=== PATIENT | female | born 1985 | race Caucasian/White ===

== ENCOUNTER 2017-07-24 10:33 | Emergency (ER) | payer MEDICAID ==
[~2017-07-24] VITALS: Ht 172.7 cm; Wt 55.0 kg
[2017-07-24 10:36] VITALS: BP 104/61; PULSE 66; RESP 16; TEMP 98.3; O2SAT 98
[2017-07-24] MEDS ORDERED: PREM0.45 PO (11:03)
[2017-07-24] MEDS ORDERED: OLAN15TA PO (11:03)
[2017-07-24] MEDS ORDERED: PROG100C PO (11:03)
[2017-07-24] MEDS ORDERED: ESTR.9 PO (11:03)
[2017-07-24] MEDS ORDERED: SODIUM CHLOR 0.9% 1000 ML INJ 1,000 ML IV ONE (11:03)
[2017-07-24] MEDS ORDERED: OXCA300T PO (11:03)
[2017-07-24] MEDS ORDERED: OXCA150T PO (11:03)
[2017-07-24] MEDS ORDERED: CLON1TAB PO (11:03)
[2017-07-24] MEDS ORDERED: ROZE8TAB19 PO (11:03)
[2017-07-24] MEDS ORDERED: GABA800T PO (11:03)
[2017-07-24] MEDS ORDERED: MORPHINE SULFATE 8 MG/ML INJ IV PUSH ONE (11:15)
[2017-07-24] MEDS ORDERED: SODIUM CHLORIDE 0.9% FLUSH 10 ML FLUSH IVF PRN (11:15)
[2017-07-24] MEDS ORDERED: KETOROLAC TROMETHAMINE 30 MG/ML (IVP) VIAL IVP ONE (11:15)
[2017-07-24] MEDS ORDERED: PROCHLORPERAZINE INJ 10 MG/2 ML VIAL IVP ONE (11:15)
[2017-07-24] MEDS ORDERED: diphenhydrAMINE HCL 50 MG/ML VIAL IVP ONE (11:15)
--- NOTE | 2017-07-24 11:19 | PD ---
HPI Chief Complaint: General Weakness Time Seen by Provider: 10:58 Travel History International Travel<30 days: No Contact w/Intl Traveler<30days: No Traveled to known affect area: No History of Present Illness HPI The patient is a 32-year-old female who presents to the emergency department with complaints of headache and generalized malaise. The patient states her headache started 2 days ago, is located posterior aspect of her head , came on gradually, is associated with photophobia, nausea, vomiting, and generalized weakness. She does have a history of similar headaches in the past secondary to migraines. She denies any diplopia or blurry vision. She denies any chest pain, shortness of breath, or abdominal pain. She denies any focal deficits. She does complain of generalized malaise. She does have a history of hysterectomy and has been out of her hormones for several weeks. She denies any associated fever. She does have intermittent chills. She denies any associated dysuria. PFSH Past Medical History Bipolar Disorder: Yes Anxiety: Yes ?: Not Ovarian Cysts: Yes Past Surgical History Cholecystectomy: Yes Hysterectomy: Yes Social History Alcohol Use: No Tobacco Use: Yes Substance Use: No Allergies-Medications (Allergen,Severity, Reaction): Coded Allergies: acetaminophen (Verified Allergy, Unknown, Rash, 07/24/17) citalopram (Verified Allergy, Unknown, 07/24/17) hydrocodone (Verified Allergy, Unknown, Rash, 07/24/17) metoclopramide (Verified Allergy, Unknown, 07/24/17) Reported Meds & Prescriptions Reported Meds & Active Scripts Active Reported Premarin (Estrogens, Conjugated) 0.45 Mg Tab 0.45 Mg PO DAILY Premarin (Estrogens Conjugated) 0.9 Mg Tab 0.9 Mg PO DAILY Progesterone Micronized 100 Mg Cap 100 Mg PO DAILY Olanzapine 15 Mg Tab 15 Mg PO DAILY Oxcarbazepine 150 Mg Tab 150 Mg PO BID Oxcarbazepine 300 Mg Tab 300 Mg PO HS Clonazepam 1 Mg Tab 1 Mg PO BID Rozerem (Ramelteon) 8 Mg Tab 8 Mg PO HS Gabapentin 800 Mg Tab 800 Mg PO TID Review of Systems Except as stated in HPI: all other systems reviewed are Neg General / Constitutional: Positive: Chills, No: Fever Eyes: Positive: Photophobia, No: Blurred Vision HENT: Positive: Headaches, Neck Pain Cardiovascular: No: Chest Pain or Discomfort Respiratory: No: Shortness of Breath Gastrointestinal: Positive: Nausea, Vomiting, No: Abdominal Pain Genitourinary: No: Dysuria Musculoskeletal: Positive: Weakness Neurologic: No: Paresthesia, Sensory Disturbance Physical Exam Narrative GENERAL: Awake, alert, pleasant 32 year-old female who appears her stated age and is in no acute respiratory distress. SKIN: Focused skin assessment warm/dry. HEAD: Atraumatic. Normocephalic. EYES: Pupils equal and round. Pupils are 3 monos bilateral and reactive. EOMs are intact. ENT: No nasal bleeding or discharge. Mucous membranes pink and moist. The patient has a tongue ring which states "fuck you". NECK: Trachea midline. No JVD. No meningeal signs. CARDIOVASCULAR: Regular rate and rhythm. No murmur appreciated. RESPIRATORY: No accessory muscle use. Clear to auscultation. Breath sounds equal bilaterally. GASTROINTESTINAL: Abdomen soft, non-tender, nondistended. No rebound tenderness. MUSCULOSKELETAL: No obvious deformities. No clubbing. No cyanosis. No edema. NEUROLOGICAL: Awake and alert. No obvious cranial nerve deficits. Motor grossly within normal limits. Normal speech. Nonfocal. PSYCHIATRIC: Appropriate mood and affect; insight and judgment normal. Data Data Last Documented VS Vital Signs Date Time Temp Pulse Resp B/P (MAP) Pulse Ox O2 Delivery O2 Flow Rate FiO2 07/24/17 11:13 Room Air 07/24/17 10:36 98.3 66 16 98 Orders Orders Complete Blood Count With Diff (07/24/17 11:03) Comprehensive Metabolic Panel (07/24/17 11:03) Ecg Monitoring (07/24/17 11:03) Iv Access Insert/Monitor (07/24/17 11:03) Oximetry (07/24/17 11:03) Sodium Chloride 0.9% Flush (Ns Flush) (07/24/17 11:15) Ketorolac Inj (Toradol Inj) (07/24/17 11:15) Prochlorperazine Inj (Compazine Inj) (07/24/17 11:15) Diphenhydramine Inj (Benadryl Inj) (07/24/17 11:15) Morphine Inj (Morphine Inj) (07/24/17 11:15) Sodium Chlor 0.9% 1000 Ml Inj (Ns 1000 M (2/12/18 11:03) Urinalysis - C+S If Indicated (07/24/17 11:03) Hydroxyzine Pamoate (Vistaril) (07/24/17 12:15) Labs Laboratory Tests Test 07/24/17 11:10 07/24/17 11:13 White Blood Count 5.3 TH/MM3 Red Blood Count 3.98 MIL/MM3 Hemoglobin 13.0 GM/DL Hematocrit 37.5 % Mean Corpuscular Volume 94.3 FL Mean Corpuscular Hemoglobin 32.8 PG Mean Corpuscular Hemoglobin Concent 34.7 % Red Cell Distribution Width 13.3 % Platelet Count 209 TH/MM3 Mean Platelet Volume 7.8 FL Neutrophils (%) (Auto) 55.4 % Lymphocytes (%) (Auto) 34.3 % Monocytes (%) (Auto) 7.8 % Eosinophils (%) (Auto) 2.1 % Basophils (%) (Auto) 0.4 % Neutrophils # (Auto) 2.9 TH/MM3 Lymphocytes # (Auto) 1.8 TH/MM3 Monocytes # (Auto) 0.4 TH/MM3 Eosinophils # (Auto) 0.1 TH/MM3 Basophils # (Auto) 0.0 TH/MM3 CBC Comment DIFF FINAL Differential Comment Blood Urea Nitrogen 11 MG/DL Creatinine 0.57 MG/DL Random Glucose 84 MG/DL Total Protein 7.4 GM/DL Albumin 3.8 GM/DL Calcium Level 8.9 MG/DL Alkaline Phosphatase 72 U/L Aspartate Amino Transf (AST/SGOT) 15 U/L Alanine Aminotransferase (ALT/SGPT) 14 U/L Total Bilirubin 0.2 MG/DL Sodium Level 140 MEQ/L Potassium Level 4.0 MEQ/L Chloride Level 109 MEQ/L Carbon Dioxide Level 25.5 MEQ/L Anion Gap 6 MEQ/L Estimat Glomerular Filtration Rate 122 ML/MIN Urine Color YELLOW Urine Turbidity CLEAR Urine pH 6.0 Urine Specific [place] 1.014 Urine Protein NEG mg/dL Urine Glucose (UA) NEG mg/dL Urine Ketones NEG mg/dL Urine Occult Blood NEG Urine Nitrite NEG Urine Bilirubin NEG Urine Urobilinogen LESS THAN 2.0 MG/DL Urine Leukocyte Esterase NEG Urine RBC 2 /hpf Urine WBC 1 /hpf Urine Squamous Epithelial Cells 2 /hpf Urine Mucus FEW /lpf Microscopic Urinalysis Comment CULT NOT INDICATED MDM Medical Decision Making Medical Screen Exam Complete: Yes Emergency Medical Condition: Yes Medical Record Reviewed: Yes Interpretation(s) Laboratory Tests Test 07/24/17 11:10 07/24/17 11:13 White Blood Count 5.3 TH/MM3 Red Blood Count 3.98 MIL/MM3 Hemoglobin 13.0 GM/DL Hematocrit 37.5 % Mean Corpuscular Volume 94.3 FL Mean Corpuscular Hemoglobin 32.8 PG Mean Corpuscular Hemoglobin Concent 34.7 % Red Cell Distribution Width 13.3 % Platelet Count 209 TH/MM3 Mean Platelet Volume 7.8 FL Neutrophils (%) (Auto) 55.4 % Lymphocytes (%) (Auto) 34.3 % Monocytes (%) (Auto) 7.8 % Eosinophils (%) (Auto) 2.1 % Basophils (%) (Auto) 0.4 % Neutrophils # (Auto) 2.9 TH/MM3 Lymphocytes # (Auto) 1.8 TH/MM3 Monocytes # (Auto) 0.4 TH/MM3 Eosinophils # (Auto) 0.1 TH/MM3 Basophils # (Auto) 0.0 TH/MM3 CBC Comment DIFF FINAL Differential Comment Blood Urea Nitrogen 11 MG/DL Creatinine 0.57 MG/DL Random Glucose 84 MG/DL Total Protein 7.4 GM/DL Albumin 3.8 GM/DL Calcium Level 8.9 MG/DL Alkaline Phosphatase 72 U/L Aspartate Amino Transf (AST/SGOT) 15 U/L Alanine Aminotransferase (ALT/SGPT) 14 U/L Total Bilirubin 0.2 MG/DL Sodium Level 140 MEQ/L Potassium Level 4.0 MEQ/L Chloride Level 109 MEQ/L Carbon Dioxide Level 25.5 MEQ/L Anion Gap 6 MEQ/L Estimat Glomerular Filtration Rate 122 ML/MIN Urine Color YELLOW Urine Turbidity CLEAR Urine pH 6.0 Urine Specific [place] 1.014 Urine Protein NEG mg/dL Urine Glucose (UA) NEG mg/dL Urine Ketones NEG mg/dL Urine Occult Blood NEG Urine Nitrite NEG Urine Bilirubin NEG Urine Urobilinogen LESS THAN 2.0 MG/DL Urine Leukocyte Esterase NEG Urine RBC 2 /hpf Urine WBC 1 /hpf Urine Squamous Epithelial Cells 2 /hpf Urine Mucus FEW /lpf Microscopic Urinalysis Comment CULT NOT INDICATED Differential Diagnosis Differential diagnosis includes migraine, cephalgia, tension headache, subarachnoid hemorrhage, meningitis, UTI, pyelonephritis, electrolyte abnormality. Narrative Course IV was established, labs are drawn and sent, and the patient was placed on cardiac telemetry monitoring and continuous pulse oximetry monitoring. The patient was administered morphine, Toradol, Compazine, Benadryl, and IV fluids. UA was sent to lab. Condition: Stable Dez Lynn MD Jul 24, 2017 11:19
[2017-07-24 11:29] LABS: AUTOMATED NEUTROPHIL # 2.9 TH/MM3 (1.8-7.7); BASOPHIL % 0.4 % (0.0-2.0); EOSINOPHIL # 0.1 TH/MM3 (0-0.4); EOSINOPHIL % 2.1 % (0.0-4.0); HEMATOCRIT 37.5 % (35.0-46.0); LYMPH % 34.3 % (9.0-44.0); LYMPHOCYTE # 1.8 TH/MM3 (1.0-4.8); MEAN CELL VOLUME 94.3 FL (80.0-100.0); MEAN CORPUSCULAR HEMOGLOBIN 32.8 PG (27.0-34.0); MEAN CORPUSCULAR HGB CONC 34.7 % (32.0-36.0); MEAN PLATELET VOLUME 7.8 FL (7.0-11.0); MONO % 7.8 % (0.0-8.0); MONOCYTE # 0.4 TH/MM3 (0-0.9); NEUT % 55.4 % (16.0-70.0); PLATELET COUNT 209 TH/MM3 (150-450); RED BLOOD COUNT 3.98 MIL/MM3 (4.00-5.30); RED CELL DISTRIBUTION WIDTH 13.3 % (11.6-17.2); WHITE BLOOD COUNT 5.3 TH/MM3 (4.0-11.0)
[2017-07-24 11:38] LABS: BILIRUBIN, URINE NEG (NEG); BLOOD, URINE NEG (NEG); GLUCOSE,URINE NEG (NEG); KETONE, URINE NEG (NEG); MUCUS URINE FEW /lpf (OCC); NITRITE,URINE NEG (NEG); SQUAMOUS EPITHELIAL CELL URINE 2 /hpf (0-5); URINE COLOR YELLOW (YELLW/STRAW); URINE LEUKOCYTE ESTERASE NEG (NEG)
[2017-07-24 11:47] LABS: ALBUMIN 3.8 GM/DL (3.4-5.0); ALT (GPT) 14 U/L (10-53); AST (GOT) 15 U/L (15-37); BICARBONATE 25.5 MEQ/L (21.0-32.0); BLOOD UREA NITROGEN 11 MG/DL (7-18); CALCIUM 8.9 MG/DL (8.5-10.1); CHLORIDE 109 MEQ/L (98-107); CREATININE 0.57 MG/DL (0.50-1.00); GLOMERULAR FILTRATION RATE 122 ML/MIN (>89); GLUCOSE,RANDOM 84 MG/DL (74-106); SODIUM (NA) 140 MEQ/L (136-145)
[2017-07-24 11:50] LABS: ALKALINE PHOSPHATASE 72 U/L (45-117); TOTAL BILIRUBIN ADULT 0.2 MG/DL (0.2-1.0); TOTAL PROTEIN 7.4 GM/DL (6.4-8.2)
[2017-07-24] MEDS ORDERED: hydrOXYzine PAMOATE 25 MG CAP PO ONE (12:15)
== END 2017-07-24 12:54 | disposition home or self-care (01) ==
LOC: NEPD 10:33
DX: R51 Headache (principal); R11.2 Nausea with vomiting, unspecified; R53.1 Weakness; F31.9 Bipolar disorder, unspecified; F41.9 Anxiety disorder, unspecified; Z72.0 Tobacco use; Z88.8 Allergy status to other drugs, medicaments and biological substances; Z79.899 Other long term (current) drug therapy
CPT/HCPCS: 80053; 81001; 85025; 96374; 96375; 99284; J0780; J1200; J1885; J2270; J7030; Q0177

== ENCOUNTER 2017-08-01 11:49 | Emergency (ER) | payer SELFPAY ==
[~2017-08-01] VITALS: Ht 172.7 cm; Wt 53.5 kg
[~2017-08-01 11:49] MED LIST: CLON1TAB PO; ESTR.9 PO; GABA800T PO; OLAN15TA PO; OXCA150T PO; OXCA300T PO; PREM0.45 PO; PROG100C PO; ROZE8TAB19 PO
[2017-08-01 11:51] VITALS: BP 104/63; PULSE 77; RESP 16; TEMP 98.9; O2SAT 98
[2017-08-01] MEDS ORDERED: PERM5CRE TOPICAL (13:01)
--- NOTE | 2017-08-01 13:04 | PD ---
HPI Chief Complaint: Skin Problem Time Seen by Provider: 13:00 Travel History International Travel<30 days: No Contact w/Intl Traveler<30days: No Traveled to known affect area: No History of Present Illness HPI Examined in the presence of a female nurse. 32-year-old female presents for evaluation of a rash. Symptoms started 2-3 days ago. The rash is pruritic, primarily found on the torso. She has occasional pruritic lesions on her lower extremities as well. She has tried using Benadryl but the rash persists which prompted evaluation. She reports that she moved here from [place] in June, currently residing in an apartment with her family. No sick contacts with rash. Denies any new medications, creams, lotions detergents, cough, congestion, sore throat. Denies any new clothing or food products. She has no other complaints at this time. PFSH Past Medical History Bipolar Disorder: Yes Anxiety: Yes ?: Not Ovarian Cysts: Yes Past Surgical History Cholecystectomy: Yes Hysterectomy: Yes Social History Alcohol Use: No Tobacco Use: Yes Substance Use: No Allergies-Medications (Allergen,Severity, Reaction): Coded Allergies: acetaminophen (Verified Allergy, Unknown, Rash, 07/24/17) citalopram (Verified Allergy, Unknown, 07/24/17) hydrocodone (Verified Allergy, Unknown, Rash, 07/24/17) metoclopramide (Verified Allergy, Unknown, 07/24/17) Reported Meds & Prescriptions Reported Meds & Active Scripts Active Reported Premarin (Estrogens, Conjugated) 0.45 Mg Tab 0.45 Mg PO DAILY Premarin (Estrogens Conjugated) 0.9 Mg Tab 0.9 Mg PO DAILY Progesterone Micronized 100 Mg Cap 100 Mg PO DAILY Olanzapine 15 Mg Tab 15 Mg PO DAILY Oxcarbazepine 150 Mg Tab 150 Mg PO BID Oxcarbazepine 300 Mg Tab 300 Mg PO HS Clonazepam 1 Mg Tab 1 Mg PO BID Rozerem (Ramelteon) 8 Mg Tab 8 Mg PO HS Gabapentin 800 Mg Tab 800 Mg PO TID Review of Systems Except as stated in HPI: all other systems reviewed are Neg Physical Exam Narrative GENERAL: Well developed well-nourished female in no acute distress SKIN: Warm and dry. Several scattered excoriated papular lesions noted primarily on the torso. She has a few small papular lesions on the lower extremities as well. No hives, no vesicles, no pustules, no petechiae, no purpura HEAD: Atraumatic. Normocephalic. EYES: Pupils equal and round. No scleral icterus. No injection or drainage. ENT: No nasal bleeding or discharge. Mucous membranes pink and moist. NECK: Trachea midline. No JVD. CARDIOVASCULAR: Regular rate and rhythm. No murmur appreciated. RESPIRATORY: No accessory muscle use. Clear to auscultation. Breath sounds equal bilaterally. GASTROINTESTINAL: Abdomen soft, non-tender, nondistended. Hepatic and splenic margins not palpable. Data Data Last Documented VS Vital Signs Date Time Temp Pulse Resp B/P (MAP) Pulse Ox O2 Delivery O2 Flow Rate FiO2 08/01/17 11:51 98.9 77 16 104/63 (77) 98 Room Air MDM Medical Decision Making Medical Screen Exam Complete: Yes Emergency Medical Condition: Yes Medical Record Reviewed: Yes Differential Diagnosis Bedbugs, scabies, viral exanthem, contact dermatitis, pityriasis rosea, urticaria Narrative Course On examination the patient has excoriated papular lesions of unknown etiology. The patient will be given permethrin cream, recommended continued use of over- the-counter antihistamines and follow up with primary care physician if symptoms persist. Diagnosis Primary Impression: Pruritic rash Additional Instructions: [id number] Benadryl, calamine lotion, oatmeal baths. Avoid scratching. Medication as prescribed. Follow-up with primary care physician. Return for any emergent medical conditions. Med/Other Pt SpecificInfo: Prescription(s) given Scripts Permethrin Topical 5% (Permethrin Topical 5%) 5% Cream 1 APPLIC TOPICAL ONCE for Scabies, #1 TUBE 1 Refill Prov: Humberto Palacios MD 08/01/17 Disposition: 01 DISCHARGE HOME Condition: Stable Robert Dolan Aug 01, 2017 13:04
== END 2017-08-01 13:19 | disposition home or self-care (01) ==
LOC: NEPK 11:49
DX: R21 Rash and other nonspecific skin eruption (principal); Z72.0 Tobacco use
CPT/HCPCS: 99283

== ENCOUNTER 2017-08-06 14:16 | Emergency (ER) | payer MEDICAID ==
[~2017-08-06] VITALS: Ht 172.7 cm; Wt 55.0 kg
[~2017-08-06 14:16] MED LIST changes: +PERM5CRE TOPICAL
[2017-08-06 14:18] VITALS: BP 129/80; PULSE 57; RESP 13; TEMP 98.2; O2SAT 99
[2017-08-06] MEDS ORDERED: OXCA150T PO (15:22)
[2017-08-06] MEDS ORDERED: OLAN15TA PO (15:22)
[2017-08-06] MEDS ORDERED: OXCA300T PO (15:22)
--- NOTE | 2017-08-06 15:22 | PD ---
HPI Chief Complaint: Headache Time Seen by Provider: 14:55 Travel History International Travel<30 days: No Contact w/Intl Traveler<30days: No Traveled to known affect area: No History of Present Illness HPI 32-year-old female presents to the emergency department requesting medication refill on her bipolar medications and with complaint of headache 2 days. Has history of migraines and says her headache is consistent with past migraines. She thinks that her migraine has onset because she has been out of her medications for 1 week. Reports left eye twitching and "trembles." Headache is right posterior. Gradual onset. Denies fever, vomiting. Denies change in vision. Denies confusion, disorientation, change in mentation, slurred speech. Denies illicit drug use. Rates it 01/19. Describes as aching. Start taking tramadol, Tylenol, Motrin with no relief of headache. No primary care provider. History of asthma and seizures. Allergies to Celexa and Reglan. Has no other medical complaints. No other modifying factors or associated signs and symptoms. PFSH Past Medical History Bipolar Disorder: Yes Anxiety: Yes ?: Not Ovarian Cysts: Yes Past Surgical History Cholecystectomy: Yes Hysterectomy: Yes Social History Alcohol Use: No Tobacco Use: Yes Substance Use: No Allergies-Medications (Allergen,Severity, Reaction): Coded Allergies: acetaminophen (Verified Allergy, Unknown, Rash, 08/06/17) citalopram (Verified Allergy, Unknown, 08/06/17) hydrocodone (Verified Allergy, Unknown, Rash, 08/06/17) metoclopramide (Verified Allergy, Unknown, 08/06/17) Reported Meds & Prescriptions Reported Meds & Active Scripts Active Olanzapine 15 Mg Tab 15 Mg PO DAILY Oxcarbazepine 150 Mg Tab 150 Mg PO BID Oxcarbazepine 300 Mg Tab 300 Mg PO HS Permethrin Topical 5% (Permethrin) 5% Cream 1 Applic TOPICAL ONCE Reported Premarin (Estrogens, Conjugated) 0.45 Mg Tab 0.45 Mg PO DAILY Premarin (Estrogens Conjugated) 0.9 Mg Tab 0.9 Mg PO DAILY Progesterone Micronized 100 Mg Cap 100 Mg PO DAILY Clonazepam 1 Mg Tab 1 Mg PO BID Rozerem (Ramelteon) 8 Mg Tab 8 Mg PO HS Gabapentin 800 Mg Tab 800 Mg PO TID Review of Systems Except as stated in HPI: all other systems reviewed are Neg Physical Exam Narrative GENERAL: Well-nourished, well-developed female patient, in no acute distress; tremulous SKIN: Warm and dry. HEAD: Atraumatic. Normocephalic. No facial droop noted. Tongue midline. Finger to nose test normal. Shoulder shrug equal. EYES: Pupils equal and round at 4 mm with brisk reaction. No scleral icterus. No injection or drainage. PERRLA. EOMI. ENT: Mucosa pink and moist. Airway patent. NECK: Trachea midline. No lymphadenopathy. CARDIOVASCULAR: Regular rate. RESPIRATORY: No accessory muscle use. GASTROINTESTINAL: Flat. MUSCULOSKELETAL: No obvious deformities. No clubbing. No cyanosis. No edema. NEUROLOGICAL: Awake and alert. Oriented 3. No obvious cranial nerve deficits. Motor grossly within normal limits. Normal speech. No ataxia. No mid -line drift. No upper or lower extremity drift. Moves all extremities. 5/5 strength to all extremities. PSYCHIATRIC: Appropriate mood and affect; insight and judgment normal. Data Data Last Documented VS Vital Signs Date Time Temp Pulse Resp B/P (MAP) Pulse Ox O2 Delivery O2 Flow Rate FiO2 08/06/17 14:18 98.2 57 13 129/80 (96) 99 Orders Orders Clonazepam (Klonopin) (08/06/17 15:30) Ketorolac Inj (Toradol Inj) (08/06/17 15:30) Diphenhydramine (Benadryl) (08/06/17 15:30) Prochlorperazine Inj (Compazine Inj) (08/06/17 15:30) Ed Discharge Order (08/06/17 16:23) [facility] Medical Decision Making Medical Screen Exam Complete: Yes Emergency Medical Condition: Yes Medical Record Reviewed: Yes Differential Diagnosis Medication refill, migraine headache, benzodiazepine withdrawal Narrative Course 32-year-old female with complaint of headache and requesting medication refill. She is tremulous. She typically takes clonazepam for her anxiety and bipolar disorder. She has been out for 1 week. Neuro exam is unremarkable. Her headache is consistent with past migraine headaches. Clonazepam, Benadryl, Compazine, Toradol ordered. 1637: Patient reports improvement in headache. Medication refills for some of her medications provided. Patient given information for follow-up at [facility]/ [facility]. Instructed patient to follow up with primary care provider. Patient verbalizes understanding and agreement with treatment plan. Patient is medically cleared and stable for discharge. Discussed reasons to return to the emergency department. Patient agrees with treatment plan. The patients vital signs are stable and the patient is stable for outpatient follow-up and treatment. Patient discharged home, stable and in no acute distress. Diagnosis Primary Impression: Headache Qualified Codes: R51 - Headache Additional Impressions: Tremor Medication refill Referrals: [facility] (Out patient) Primary Care Physician [facility] Patient Instructions: Acute Headache (ED), General Instructions, Migraine Headache (ED), Tremors (ED) Additional Instructions: Follow-up at [facility] or [facility]; the location and contact information is in your discharge instructions Follow-up with primary care provider Follow-up at [facility] they are a primary care office Return to the emergency department immediately with worsening of symptoms Med/Other Pt SpecificInfo: Prescription(s) given Scripts Olanzapine (Olanzapine) 15 Mg Tab 15 MG PO DAILY, #30 TAB 0 Refills Prov: Jade LobatoP 08/06/17 Oxcarbazepine (Oxcarbazepine) 150 Mg Tab 150 MG PO BID for Seizure Control, #30 TAB 0 Refills Prov: Jade LobatoP 08/06/17 Oxcarbazepine (Oxcarbazepine) 300 Mg Tab 300 MG PO HS for Seizure Control, #30 TAB 0 Refills Prov: Jade LobatoP 08/06/17 Disposition: 01 DISCHARGE HOME Condition: Stable Jade LobatoP Aug 06, 2017 15:22
[2017-08-06] MEDS ORDERED: KETOROLAC TROMETHAMINE 60 MG/2 ML (IM) VIAL IM ONE (15:30)
[2017-08-06] MEDS ORDERED: PROCHLORPERAZINE INJ 10 MG/2 ML VIAL IM ONE (15:30)
[2017-08-06] MEDS ORDERED: diphenhydrAMINE HCL 50 MG CAP PO ONE (15:30)
[2017-08-06] MEDS ORDERED: clonazePAM 1 MG TAB PO ONE (15:30)
== END 2017-08-06 16:57 | disposition home or self-care (01) ==
LOC: NEPD 14:16
DX: R51 Headache (principal); R25.1 Tremor, unspecified; J45.909 Unspecified asthma, uncomplicated; F31.9 Bipolar disorder, unspecified; F41.9 Anxiety disorder, unspecified; N83.209 Unspecified ovarian cyst, unspecified side; Z76.0 Encounter for issue of repeat prescription; Z72.0 Tobacco use
CPT/HCPCS: 96372; 99281; J0780; J1885; Q0163

== ENCOUNTER 2017-08-22 11:38 | Emergency (ER) | payer MEDICAID ==
[~2017-08-22] VITALS: Ht 172.7 cm; Wt 53.6 kg
[2017-08-22 12:02] VITALS: BP 109/73; PULSE 81; RESP 18; TEMP 98.1; O2SAT 100
[2017-08-22 12:49] LABS: BASOPHIL % 0.4 % (0.0-2.0); EOSINOPHIL # 0.1 TH/MM3 (0-0.4); EOSINOPHIL % 1.1 % (0.0-4.0); HEMATOCRIT 40.4 % (35.0-46.0); HEMOGLOBIN 14.5 GM/DL (11.6-15.3); LYMPH % 16.7 % (9.0-44.0); LYMPHOCYTE # 1.3 TH/MM3 (1.0-4.8); MEAN CELL VOLUME 93.2 FL (80.0-100.0); MEAN CORPUSCULAR HEMOGLOBIN 33.6 PG (27.0-34.0); MEAN PLATELET VOLUME 8.4 FL (7.0-11.0); MONO % 6.6 % (0.0-8.0); MONOCYTE # 0.5 TH/MM3 (0-0.9); NEUT % 75.2 % (16.0-70.0); PLATELET COUNT 180 TH/MM3 (150-450); RED BLOOD COUNT 4.33 MIL/MM3 (4.00-5.30); RED CELL DISTRIBUTION WIDTH 12.4 % (11.6-17.2); WHITE BLOOD COUNT 7.9 TH/MM3 (4.0-11.0)
[2017-08-22 13:07] LABS: ALBUMIN 4.8 GM/DL (3.4-5.0); ALT (GPT) 17 U/L (10-53); AST (GOT) 13 U/L (15-37); BICARBONATE 22.8 MEQ/L (21.0-32.0); BLOOD UREA NITROGEN 13 MG/DL (7-18); CALCIUM 9.4 MG/DL (8.5-10.1); CHLORIDE 103 MEQ/L (98-107); CREATININE 0.61 MG/DL (0.50-1.00); GLOMERULAR FILTRATION RATE 113 ML/MIN (>89); GLUCOSE,RANDOM 72 MG/DL (74-106); SODIUM (NA) 138 MEQ/L (136-145)
[2017-08-22 13:17] LABS: ALKALINE PHOSPHATASE 93 U/L (45-117); TOTAL BILIRUBIN ADULT 0.3 MG/DL (0.2-1.0); TOTAL PROTEIN 8.5 GM/DL (6.4-8.2)
[2017-08-22 13:31] LABS: OVALOCYTES 1+ (NORMAL)
--- NOTE | 2017-08-22 15:00 | PD ---
HPI Chief Complaint: Anxiety Time Seen by Provider: 14:39 Travel History International Travel<30 days: No Contact w/Intl Traveler<30days: No Traveled to known affect area: No History of Present Illness HPI 32-year-old female presents to the emergency room with a panic attack. Patient states panic attack started this morning when she woke up because she became concerned about not having her medications. States it started off with hot flashes that she gets since having a hysterectomy. She usually takes medication to ease her post hysterectomy symptoms but has been out for a long time. This caused her to develop a panic with associated nausea, vomiting, tremors, and slight headache. She has been out of all of her medications since moving down from [place] a few weeks ago. Patient states she had her medications filled in [place] with insurance but now she has [employer] and cannot afford them. She denies significant chest pain, abdominal pain, shortness of breath, dizziness. Denies suicidal or homicidal ideation. No hallucinations or delusions. She denies illicit drug use. Denies drinking alcohol. She denies any other chronic medical conditions. PFSH Past Medical History Bipolar Disorder: Yes Anxiety: Yes Depression: Yes Diminished Hearing: No Seizures: Yes ?: Not : 3 Para: 3 Ovarian Cysts: Yes Past Surgical History Appendectomy: Yes Cholecystectomy: Yes Hysterectomy: Yes (ENDOMETRIOSIS) Social History Alcohol Use: No Tobacco Use: Yes Substance Use: No Allergies-Medications (Allergen,Severity, Reaction): Coded Allergies: acetaminophen (Verified Allergy, Unknown, Rash, 08/22/17) citalopram (Verified Allergy, Unknown, 08/22/17) hydrocodone (Verified Allergy, Unknown, Rash, 08/22/17) metoclopramide (Verified Allergy, Unknown, 08/22/17) Reported Meds & Prescriptions Reported Meds & Active Scripts Active Olanzapine 15 Mg Tab 15 Mg PO DAILY Oxcarbazepine 150 Mg Tab 150 Mg PO BID Oxcarbazepine 300 Mg Tab 300 Mg PO HS Permethrin Topical 5% (Permethrin) 5% Cream 1 Applic TOPICAL ONCE Reported Premarin (Estrogens, Conjugated) 0.45 Mg Tab 0.45 Mg PO DAILY Premarin (Estrogens Conjugated) 0.9 Mg Tab 0.9 Mg PO DAILY Progesterone Micronized 100 Mg Cap 100 Mg PO DAILY Clonazepam 1 Mg Tab 1 Mg PO BID Rozerem (Ramelteon) 8 Mg Tab 8 Mg PO HS Gabapentin 800 Mg Tab 800 Mg PO TID Review of Systems Except as stated in HPI: all other systems reviewed are Neg Physical Exam Narrative GENERAL: Well-nourished, well-developed female in no acute distress. Afebrile. Ambulatory. SKIN: Focused skin assessment warm/dry. HEAD: Normocephalic. EYES: No scleral icterus. No injection or drainage. NECK: Supple, trachea midline. No JVD or lymphadenopathy. CARDIOVASCULAR: Regular rate and rhythm without murmurs, gallops, or rubs. RESPIRATORY: Breath sounds equal bilaterally. No accessory muscle use. GASTROINTESTINAL: Abdomen soft, non-tender, nondistended. PSYCHIATRIC: No delusional thought processes. No hallucinations. Crying on exam. Data Data Last Documented VS Vital Signs Date Time Temp Pulse Resp B/P (MAP) Pulse Ox O2 Delivery O2 Flow Rate FiO2 08/22/17 12:02 98.1 81 18 109/73 (85) 100 Orders Orders Complete Blood Count With Diff (08/22/17 12:05) Comprehensive Metabolic Panel (08/22/17 12:05) Lipase (08/22/17 12:05) Thyroid Stimulating Hormone (08/22/17 12:05) Hydroxyzine Pamoate (Vistaril) (08/22/17 14:45) Ondansetron Odt (Zofran Odt) (08/22/17 15:30) Labs Laboratory Tests Test 08/22/17 12:30 White Blood Count 7.9 TH/MM3 Red Blood Count 4.33 MIL/MM3 Hemoglobin 14.5 GM/DL Hematocrit 40.4 % Mean Corpuscular Volume 93.2 FL Mean Corpuscular Hemoglobin 33.6 PG Mean Corpuscular Hemoglobin Concent 36.0 % Red Cell Distribution Width 12.4 % Platelet Count 180 TH/MM3 Mean Platelet Volume 8.4 FL Neutrophils (%) (Auto) 75.2 % Lymphocytes (%) (Auto) 16.7 % Monocytes (%) (Auto) 6.6 % Eosinophils (%) (Auto) 1.1 % Basophils (%) (Auto) 0.4 % Neutrophils # (Auto) 6.0 TH/MM3 Lymphocytes # (Auto) 1.3 TH/MM3 Monocytes # (Auto) 0.5 TH/MM3 Eosinophils # (Auto) 0.1 TH/MM3 Basophils # (Auto) 0.0 TH/MM3 CBC Comment AUTO DIFF Differential Comment AUTO DIFF CONFIRMED Platelet Estimate NORMAL Platelet Morphology Comment NORMAL Ovalocytes 1+ Blood Urea Nitrogen 13 MG/DL Creatinine 0.61 MG/DL Random Glucose 72 MG/DL Total Protein 8.5 GM/DL Albumin 4.8 GM/DL Calcium Level 9.4 MG/DL Alkaline Phosphatase 93 U/L Aspartate Amino Transf (AST/SGOT) 13 U/L Alanine Aminotransferase (ALT/SGPT) 17 U/L Total Bilirubin 0.3 MG/DL Sodium Level 138 MEQ/L Potassium Level 3.7 MEQ/L Chloride Level 103 MEQ/L Carbon Dioxide Level 22.8 MEQ/L Anion Gap 12 MEQ/L Estimat Glomerular Filtration Rate 113 ML/MIN Lipase 72 U/L Thyroid Stimulating Hormone 3rd Gen 0.705 uIU/ML MDM Medical Decision Making Medical Screen Exam Complete: Yes Emergency Medical Condition: Yes Medical Record Reviewed: Yes Differential Diagnosis Malingering, anxiety, panic disorder, medication noncompliance Narrative Course 52-year-old female with history of anxiety presents to the emergency room for evaluation of panic attack. Patient states symptoms started this morning as a hot flash. States she became anxious about not having her medications after her hysterectomy that help prevent hot flashes that caused her to develop a panic attack. She had associated shaking, crying, nausea, vomiting. She denies chest pain, palpitations, shortness of breath, or dizziness. No suicidal ideations. Patient just moved here from [place] and has not been able to find a place to refill her medications. States she got refills for her medications last time she was here but never had them filled because she cannot afford them. She was referred to [facility] but never went. Physical exam is unremarkable. Patient's abdomen is soft, nontender. She is crying on exam. Lung sounds clear and equal bilaterally. CBC and CMP are unremarkable. Lipase and TSH are negative. Patient was given Vistaril in the emergency room. Discharged with prescription for the same. Told to follow-up with [facility] return for worsening symptoms. She understands and agrees to plan. Diagnosis Primary Impression: Panic attack Referrals: [facility] (Out patient) [facility] [address] Additional Instructions: Vistaril as directed, as needed for anxiety. Follow-up with [facility] for medication refills for your psychiatric medications. Follow-up with [facility] [address] for routine primary care. Return as needed for emergent or urgent medical conditions. Disposition: 01 DISCHARGE HOME Condition: Stable Patricia Sánchez Aug 22, 2017 15:00
[2017-08-22] MEDS ORDERED: ONDANSETRON ODT 4 MG TAB PO ONE (15:30)
[2017-08-22] MEDS ORDERED: VIST50CA PO (15:54)
== END 2017-08-22 16:43 | disposition home or self-care (01) ==
LOC: NEPD 11:38
DX: F41.0 Panic disorder [episodic paroxysmal anxiety] (principal); F31.9 Bipolar disorder, unspecified; Z72.0 Tobacco use
CPT/HCPCS: 80053; 83690; 84443; 85025; 99283

== ENCOUNTER 2017-09-07 07:13 | Emergency (ER) | payer MEDICAID ==
[~2017-09-07] VITALS: Ht 172.7 cm; Wt 54.0 kg
[~2017-09-07 07:13] MED LIST changes: +VIST50CA PO
[2017-09-07 07:21] VITALS: BP 106/69; PULSE 74; RESP 17; TEMP 97.4; O2SAT 100
--- NOTE | 2017-09-07 08:04 | PD ---
HPI Chief Complaint: Medication Refill Request Time Seen by Provider: 07:40 Travel History International Travel<30 days: No Contact w/Intl Traveler<30days: No Traveled to known affect area: No History of Present Illness HPI 32-year-old female presents the emergency department with symptoms of menopause, including sweats, shakiness, and inability to sleep, secondary to running out of her estrogen medications 1 week ago. Patient had a total hysterectomy in 2014 secondary to endometriosis. 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 She is in process of doing that. Her current medications have refills but she cannot have them refilled here in this state since moving. Her current medications that she should be taking his Premarin 0.45 at bedtime in addition to Premarin 0.9 at bedtime, for a total of 1.35 mg. Patient is also to take progesterone 100 mg at bedtime. She has no other complaints or requests. She is allergic to acetaminophen, citalopram, hydrocodone, and metoclopramide. PFSH Past Medical History Bipolar Disorder: Yes Anxiety: Yes Depression: Yes Diminished Hearing: No Seizures: Yes ?: Not : 3 Para: 3 Ovarian Cysts: Yes Past Surgical History Appendectomy: Yes Cholecystectomy: Yes Hysterectomy: Yes Social History Alcohol Use: No Tobacco Use: Yes Substance Use: No Allergies-Medications (Allergen,Severity, Reaction): Coded Allergies: acetaminophen (Verified Allergy, Unknown, Rash, 09/07/17) citalopram (Verified Allergy, Unknown, 09/07/17) hydrocodone (Verified Allergy, Unknown, Rash, 09/07/17) metoclopramide (Verified Allergy, Unknown, 09/07/17) Reported Meds & Prescriptions Reported Meds & Active Scripts Active Vistaril (Hydroxyzine Pamoate) 50 Mg Cap 50 Mg PO TID Olanzapine 15 Mg Tab 15 Mg PO DAILY Oxcarbazepine 150 Mg Tab 150 Mg PO BID Oxcarbazepine 300 Mg Tab 300 Mg PO HS Permethrin Topical 5% (Permethrin) 5% Cream 1 Applic TOPICAL ONCE Reported Premarin (Estrogens, Conjugated) 0.45 Mg Tab 0.45 Mg PO DAILY Premarin (Estrogens Conjugated) 0.9 Mg Tab 0.9 Mg PO DAILY Progesterone Micronized 100 Mg Cap 100 Mg PO DAILY Clonazepam 1 Mg Tab 1 Mg PO BID Rozerem (Ramelteon) 8 Mg Tab 8 Mg PO HS Gabapentin 800 Mg Tab 800 Mg PO TID Review of Systems Except as stated in HPI: all other systems reviewed are Neg General / Constitutional: No: Fever Eyes: No: Visual changes HENT: No: Headaches Cardiovascular: Positive: Palpitations, No: Chest Pain or Discomfort Respiratory: No: Shortness of Breath Gastrointestinal: No: Abdominal Pain Genitourinary: No: Dysuria Musculoskeletal: Positive: Myalgias, No: Pain Skin: No Rash Neurologic: No: Weakness Psychiatric: Positive: Anxiety, No: Depression, Suicidal Ideations, Substance Abuse, Homicidal Ideation Endocrine: No: Polydipsia Hematologic/Lymphatic: No: Easy Bruising Physical Exam Narrative GENERAL: Patient appears anxious SKIN: Warm and dry. Mild diaphoresis noted. No rash. HEAD: Atraumatic. Normocephalic. EYES: Pupils equal and round. No scleral icterus. No injection or drainage. ENT: No nasal bleeding or discharge. Mucous membranes pink and moist. NECK: Trachea midline. No JVD. CARDIOVASCULAR: Regular rate and rhythm. RESPIRATORY: No accessory muscle use. Clear to auscultation. Breath sounds equal bilaterally. GASTROINTESTINAL: Abdomen soft, non-tender, nondistended. Hepatic and splenic margins not palpable. MUSCULOSKELETAL: Extremities without clubbing, cyanosis, or edema. No obvious deformities. NEUROLOGICAL: Awake and alert. No obvious cranial nerve deficits. Motor grossly within normal limits. Five out of 5 muscle strength in the arms and legs. Normal speech. PSYCHIATRIC: Appropriate mood and affect; insight and judgment normal. Data Data Last Documented VS Vital Signs Date Time Temp Pulse Resp B/P (MAP) Pulse Ox O2 Delivery O2 Flow Rate FiO2 09/07/17 07:21 97.4 74 17 106/69 (81) 100 MDM Medical Decision Making Medical Screen Exam Complete: Yes Emergency Medical Condition: Yes Differential Diagnosis History of endometriosis. History total hysterectomy. Need for refill. Narrative Course Patient is given a refill of progesterone 100 mg at bedtime #30. Patient is given a refill of Premarin 0.45 at bedtime. #30. Patient is given refill of Premarin 0.9 mg to be taken with 0.5 mg at bedtime. #30. Patient to follow-up with local [employer]ICATION OPERATOR as discussed. Diagnosis Primary Impression: Encounter for medication refill Referrals: [facility] Patient Instructions: Conjugated Estrogens (By mouth), General Instructions Additional Instructions: Patient is given a refill of progesterone 100 mg at bedtime #30. Patient is given a refill of Premarin 0.45 at bedtime. #30. Patient is given refill of Premarin 0.9 mg to be taken with 0.5 mg at bedtime. #30. Patient to follow-up with local [employer]IFICATION OPERATOR as discussed. Disposition: 01 DISCHARGE HOME Condition: Stable Juan C Colby Sep 07, 2017 08:04
[2017-09-07] MEDS ORDERED: PROG100C PO (08:05)
[2017-09-07] MEDS ORDERED: PREM0.45 PO (08:05)
[2017-09-07] MEDS ORDERED: ESTR.9 PO (08:05)
== END 2017-09-07 08:11 | disposition home or self-care (01) ==
LOC: NEPK 07:13
DX: Z76.0 Encounter for issue of repeat prescription (principal); F31.9 Bipolar disorder, unspecified; F41.9 Anxiety disorder, unspecified; R56.9 Unspecified convulsions; Z72.0 Tobacco use; Z78.0 Asymptomatic menopausal state; Z90.710 Acquired absence of both cervix and uterus; Z79.899 Other long term (current) drug therapy; Z88.6 Allergy status to analgesic agent
CPT/HCPCS: 99281

== ENCOUNTER 2017-09-11 09:52 | Inpatient (IN) | payer MEDICAID ==
[~2017-09-11] VITALS: Ht 165.1 cm; Wt 55.5 kg
[2017-09-11] VITALS (8 sets, daily range): BP systolic 98–110; BP diastolic 60–79; PULSE 61–88; RESP 16–27; TEMP 97.5–98.1; O2SAT 97–100
[2017-09-11] MEDS ORDERED: hydrOXYzine PAMOATE 25 MG CAP PO ONE (10:45)
[2017-09-11] MEDS ORDERED: HYDR-3133 PO (10:47)
--- NOTE | 2017-09-11 10:51 | PD ---
HPI Chief Complaint: Medical Clearance Time Seen by Provider: 10:36 Travel History International Travel<30 days: No Contact w/Intl Traveler<30days: No Traveled to known affect area: No History of Present Illness HPI 32-year-old female previously seen for similar symptoms in the past, just recently seen by myself 4 days ago, with question of withdrawal from her estrogen therapy for previous total hysterectomy. Patient now presents with increased anxiety symptoms and question withdrawal from benzodiazepines. Patient was previously reported to be taking clonazepam regularly through the day. Patient states she has felt this way before. She states she has tried to get into [facility] but has been unable, secondary to insurance issues. Her symptoms include twitching, decreased appetite, nausea. She is allergic to acetaminophen, citalopram, hydrocodone, and metoclopramide. PFSH Past Medical History Bipolar Disorder: Yes Anxiety: Yes Depression: Yes Diminished Hearing: No Respiratory: Yes (ASTHMA) Seizures: Yes ?: Not : 3 Para: 3 Ovarian Cysts: Yes Past Surgical History Appendectomy: Yes Cholecystectomy: Yes Hysterectomy: Yes Social History Alcohol Use: No Tobacco Use: Yes Substance Use: No Allergies-Medications (Allergen,Severity, Reaction): Coded Allergies: acetaminophen (Verified Allergy, Unknown, Rash, 09/11/17) citalopram (Verified Allergy, Unknown, 09/11/17) hydrocodone (Verified Allergy, Unknown, Rash, 09/11/17) metoclopramide (Verified Allergy, Unknown, 09/11/17) Reported Meds & Prescriptions Reported Meds & Active Scripts Active Hydroxyzine HCl 25 Mg Tab 25 Mg PO QID PRN Premarin (Estrogens, Conjugated) 0.45 Mg Tab 0.45 Mg PO DAILY Premarin (Estrogens Conjugated) 0.9 Mg Tab 0.9 Mg PO DAILY Progesterone Micronized 100 Mg Cap 100 Mg PO DAILY Vistaril (Hydroxyzine Pamoate) 50 Mg Cap 50 Mg PO TID Olanzapine 15 Mg Tab 15 Mg PO DAILY Oxcarbazepine 150 Mg Tab 150 Mg PO BID Oxcarbazepine 300 Mg Tab 300 Mg PO HS Permethrin Topical 5% (Permethrin) 5% Cream 1 Applic TOPICAL ONCE Reported Clonazepam 1 Mg Tab 1 Mg PO BID Rozerem (Ramelteon) 8 Mg Tab 8 Mg PO HS Gabapentin 800 Mg Tab 800 Mg PO TID Review of Systems Except as stated in HPI: all other systems reviewed are Neg General / Constitutional: No: Fever Eyes: No: Visual changes HENT: No: Headaches Cardiovascular: No: Chest Pain or Discomfort Respiratory: No: Shortness of Breath Gastrointestinal: No: Abdominal Pain Genitourinary: No: Dysuria Musculoskeletal: No: Pain Skin: No Rash Neurologic: No: Weakness Psychiatric: Positive: Anxiety, No: Depression, Suicidal Ideations, Homicidal Ideation Endocrine: No: Polydipsia Hematologic/Lymphatic: No: Easy Bruising Physical Exam Narrative GENERAL: Patient appears anxious but is able to answer questions appropriately. SKIN: Warm and dry. Normal color. Normal turgor. HEAD: Atraumatic. Normocephalic. EYES: Pupils equal and round. No scleral icterus. No injection or drainage. ENT: No nasal bleeding or discharge. Mucous membranes pink and moist. Pharynx is clear. Airways patent. NECK: Trachea midline. Supple and nontender per CARDIOVASCULAR: Regular rate and rhythm. RESPIRATORY: No accessory muscle use. Clear to auscultation. Breath sounds equal bilaterally. GASTROINTESTINAL: Abdomen soft, non-tender, nondistended. Hepatic and splenic margins not palpable. MUSCULOSKELETAL: Extremities without clubbing, cyanosis, or edema. No obvious deformities. NEUROLOGICAL: Awake and alert. No obvious cranial nerve deficits. Motor grossly within normal limits. Five out of 5 muscle strength in the arms and legs. Normal speech. PSYCHIATRIC: Appropriate mood and affect; insight and judgment normal. Secondary survey after seizure. GENERAL: Patient appears postictal. SKIN: Warm and dry. Normal color. Normal turgor. No obvious signs of trauma. HEAD: Atraumatic. Normocephalic. EYES: Pupils equal and round. No scleral icterus. No injection or drainage. ENT: No nasal bleeding or discharge. Mucous membranes pink and moist. No dental injury. No injury to the tongue or buccal membrane. NECK: Trachea midline. No bony step-off, and range of motion is normal. CARDIOVASCULAR: Regular rate and rhythm. RESPIRATORY: No accessory muscle use. Clear to auscultation. Breath sounds equal bilaterally. GASTROINTESTINAL: Abdomen soft, non-tender, nondistended. Hepatic and splenic margins not palpable. MUSCULOSKELETAL: Extremities without clubbing, cyanosis, or edema. No obvious deformities. NEUROLOGICAL: Patient is postictal. No obvious cranial nerve deficits. Motor grossly within normal limits. Five out of 5 muscle strength in the arms and legs. Normal speech. Data Data Last Documented VS Vital Signs Date Time Temp Pulse Resp B/P (MAP) Pulse Ox O2 Delivery O2 Flow Rate FiO2 09/11/17 12:55 75 22 110/64 (79) 99 09/11/17 10:10 98.1 Orders Orders Hydroxyzine Pamoate (Vistaril) (09/11/17 10:45) Complete Blood Count With Diff (09/11/17 11:31) Basic Metabolic Panel (Bmp) (09/11/17 11:31) Alcohol (Ethanol) (09/11/17 11:31) Drug Screen, Random Urine (09/11/17 11:31) Electrocardiogram (09/11/17 ) Blood Glucose (09/11/17 11:31) Ecg Monitoring (09/11/17 11:31) Iv Access Insert/Monitor (09/11/17 11:31) Oximetry (09/11/17 11:31) Cath For Specimen (09/11/17 11:31) Sodium Chlor 0.9% 1000 Ml Inj (Ns 1000 M (09/11/17 11:31) Sodium Chloride 0.9% Flush (Ns Flush) (09/11/17 11:45) Lorazepam Inj (Ativan Inj) (09/11/17 11:45) Fosphenytoin Inj (Cerebyx Inj) (09/11/17 12:00) Ct Brain W/O Iv Contrast(Rout) (09/11/17 11:35) Ed Urine Pregnancytest Poc (09/11/17 11:35) Chlordiazepoxide (Librium) (09/11/17 13:30) Alcohol Withdrawal Asmt-Ciwa [id number] (09/11/17 13:28) Flumazenil Inj (Romazicon Inj) (09/11/17 13:30) Lorazepam (Ativan) (09/11/17 13:30) Lorazepam Inj (Ativan Inj) (09/11/17 13:30) Lorazepam (Ativan) (09/11/17 13:30) Lorazepam Inj (Ativan Inj) (09/11/17 13:30) Lorazepam Inj (Ativan Inj) (09/11/17 13:30) Lorazepam Inj (Ativan Inj) (09/11/17 13:30) Admit Order (Ed Use Only) (09/11/17 14:25) Labs Laboratory Tests Test 09/11/17 11:45 09/11/17 12:55 Blood Urea Nitrogen 9 MG/DL Creatinine 0.85 MG/DL Random Glucose 100 MG/DL Calcium Level 9.7 MG/DL Sodium Level 143 MEQ/L Potassium Level 3.5 MEQ/L Chloride Level 110 MEQ/L Carbon Dioxide Level 19.1 MEQ/L Anion Gap 14 MEQ/L Estimat Glomerular Filtration Rate 77 ML/MIN Ethyl Alcohol Level LESS THAN 3 MG/DL Urine Opiates Screen NEG Urine Barbiturates Screen NEG Urine Amphetamines Screen NEG Urine Benzodiazepines Screen NEG Urine Cocaine Screen NEG Urine Cannabinoids Screen POS MDM Medical Decision Making Medical Screen Exam Complete: Yes Emergency Medical Condition: Yes Differential Diagnosis Chronic anxiety. Drug-seeking behavior. Possible drug withdrawal. Narrative Course Patient is medically stable at time of exam. Patient is given Vistaril 25 mg p.o. now. Patient is given a prescription for Vistaril 25 mg 4 times daily #40. Patient was to be discharged with follow-up with [facility] or [facility], when she had a seizure as she was going out to the waiting room. This was a full-blown tonic-clonic seizure. Patient was brought back to the room, and IV access was obtained, O2 was placed on the patient with a rebreather. Labs were then ordered including CBC, CMP, urinalysis, urine , urine drug screen, and alcohol level. Patient is given 1 mg lorazepam IV as well as 1000 mL of normal saline bolus. CT of the head is ordered. Further history from the discovered that the patient did have a history of one seizure in June which was felt to be due to benzodiazepine withdrawal. Patient has been treated with Depakote and carbamazepine in the past but he states this was not for seizure disorder, but for her bipolar disorder. This is the second seizure the patient has had according to the . After the 1 mg lorazepam IV the patient is alert and oriented 3, although drowsy and postictal. CBC is unremarkable. BMP shows a chloride of 110 otherwise unremarkable with a carbon dioxide of 19.1. Urine drug screen showed positive for marijuana. CT of the head showed no acute process per radiologist Patient is given 50 mg of Librium p.o., and placed on the CIWA protocol. After discussion with Dr. Rodriguez. Calls placed to the hospitalist for admission. Diagnosis Primary Impression: Seizure concurrent with and due to anxiolytic withdrawal Admitting Information Admitting Physician Requests: Admit Referrals: [facility] Additional Instructions: Scripts Hydroxyzine HCl (Hydroxyzine HCl) 25 Mg Tab 25 MG PO QID Y for ANXIETY, #40 TAB 0 Refills Prov: Nathalie Rodriguez MD 09/11/17 Condition: Stable Juan C Colby Sep 11, 2017 10:51
[2017-09-11] MEDS ORDERED: SODIUM CHLOR 0.9% 1000 ML INJ 1,000 ML IV ONE (11:31)
[2017-09-11] MEDS ORDERED: LORazepam 2 MG/ML VIAL IVS ONE (11:45)
[2017-09-11] MEDS ORDERED: SODIUM CHLORIDE 0.9% FLUSH 10 ML FLUSH IVF PRN (11:45)
[2017-09-11] MEDS ORDERED: FOSPHENYTOIN INJ 1,000 MGPE in SODIUM CHLORIDE 0.9% INJ 50 ML IV ONE (12:00)
[2017-09-11 12:34] LABS: BICARBONATE 19.1 MEQ/L (21.0-32.0); BLOOD UREA NITROGEN 9 MG/DL (7-18); CALCIUM 9.7 MG/DL (8.5-10.1); CHLORIDE 110 MEQ/L (98-107); CREATININE 0.85 MG/DL (0.50-1.00); GLOMERULAR FILTRATION RATE 77 ML/MIN (>89); GLUCOSE,RANDOM 100 MG/DL (74-106); SODIUM (NA) 143 MEQ/L (136-145)
[2017-09-11] MEDS ORDERED: LORazepam 2 MG/ML VIAL IV PUSH PRN ×5 (13:30→14:30)
[2017-09-11] MEDS ORDERED: LORazepam 1 MG TAB PO PRN (13:30)
[2017-09-11] MEDS ORDERED: LORazepam 2 MG TAB PO PRN (13:30)
[2017-09-11] MEDS ORDERED: chlordiazePOXIDE 25 MG CAP PO PRN (13:30)
[2017-09-11] MEDS ORDERED: FLUMAZENIL 0.5 MG/5 ML VIAL IV PUSH PRN (13:30)
--- NOTE | 2017-09-11 14:14 | RADRPT ---
EXAM DATE/TIME: 09/11/2017 13:29 [facility] COMPARISON: No previous studies available for comparison. INDICATIONS : Syncope, tremors RADIATION DOSE: 35.42 CTDIvol (mGy) MEDICAL HISTORY : Seizures. Hypertension. Asthma SURGICAL HISTORY : None. ENCOUNTER: Initial ACUITY: 1 day PAIN SCALE: 0/10 LOCATION: Bilateral cranial TECHNIQUE: Multiple contiguous axial images were obtained of the head. Using automated exposure control and adj ustment of the mA and/or kV according to patient size, radiation dose was kept as low as reasonably a chievable to obtain optimal diagnostic quality images. DICOM format image data is available electro nically for review and comparison. FINDINGS: CEREBRUM: The ventricles are normal for age. No evidence of midline shift, mass lesion, hemorrhage or acute in farction. No extra-axial fluid collections are seen. POSTERIOR FOSSA: The cerebellum and brainstem are intact. The 4th ventricle is midline. The cerebellopontine angle i s unremarkable. EXTRACRANIAL: The visualized portion of the orbits is intact. SKULL: The calvaria is intact. No evidence of skull fracture. CONCLUSION: No evidence of acute intracranial pathology. No masses are identified. Valdez Ku MD on September 11, 2017 at 14:11 Board Certified Radiologist. This report was verified electronically.
[2017-09-11] MEDS ORDERED: SODIUM CHLORIDE 0.9% FLUSH 10 ML FLUSH IV FLUSH PRN (14:30)
[2017-09-11] MEDS ORDERED: ACETAMINOPHEN 325 MG TAB PO PRN (14:30)
--- NOTE | 2017-09-11 16:11 | HHI.HP ---
[facility]ician No Primary Care Physician Admission Diagnosis Seizure associated with Benzodiazapam Withdrawl Diagnoses: (1) Bipolar disorder (2) Anxiety (3) Seizure concurrent with and due to anxiolytic withdrawal Chief Complaint: Seizure Travel History International Travel<30 Days: No Contact w/Intl Traveler <30 Da: No Traveled to Known Affected Are: No History of Present Illness The patient is a 32 year old female with history of bipolar disorder and anxiety , who presented with complaints of spasms/twitching. She has been on multiple medications for bipolar disorder and anxiety. She ran out of clonazepam about 2 weeks ago. She had been evaluated by the ER physician seed laboratory assistant and was being discharged home when she had a tonic-clonic seizure. She apparently hit her head and lost consciousness. She states that she has never had a seizure before, although she and her describe a similar episode when she had run out of clonazepam previously and she ended up in a hospital in [place]. Review of Systems Constitutional: DENIES: Fever, Chills, Night Sweats Eyes: DENIES: Blurred vision, Vision loss Ears, nose, mouth, throat: DENIES: Hearing loss Respiratory: DENIES: Cough, Wheezing, Sputum production, Shortness of breath Cardiovascular: DENIES: Chest pain, Palpitations, Dyspnea on Exertion, Lower Extremity Edema Gastrointestinal: DENIES: Abdominal pain, Constipation, Diarrhea, Nausea, Vomiting Genitourinary: DENIES: Urinary frequency, Urinary incontinence, Urgency, Hematuria, Dysuria, Nocturia Musculoskeletal: DENIES: Joint pain, Muscle aches Integumentary: DENIES: Pruritus, Rash Hematologic/lymphatic: DENIES: Bruising Neurologic: COMPLAINS OF: Seizures, DENIES: Headache Past Family Social History Past Medical History Bipolar disorder Anxiety Asthma History of endometriosis Past Surgical History Appendectomy Cholecystectomy Ovarian cyst removal Total hysterectomy secondary to endometriosis Reported Medications Hydroxyzine HCl 25 Mg Tab 25 Mg PO QID PRN Premarin (Estrogens, Conjugated) 0.45 Mg Tab 0.45 Mg PO DAILY Premarin (Estrogens Conjugated) 0.9 Mg Tab 0.9 Mg PO DAILY Progesterone Micronized 100 Mg Cap 100 Mg PO DAILY Vistaril (Hydroxyzine Pamoate) 50 Mg Cap 50 Mg PO TID Olanzapine 15 Mg Tab 15 Mg PO DAILY Oxcarbazepine 150 Mg Tab 150 Mg PO BID Oxcarbazepine 300 Mg Tab 300 Mg PO HS Permethrin Topical 5% (Permethrin) 5% Cream 1 Applic TOPICAL ONCE Clonazepam 1 Mg Tab 1 Mg PO BID Rozerem (Ramelteon) 8 Mg Tab 8 Mg PO HS Gabapentin 800 Mg Tab 800 Mg PO TID Allergies: Coded Allergies: citalopram (Verified Allergy, Unknown, 09/11/17) hydrocodone (Verified Allergy, Unknown, Rash, 09/11/17) metoclopramide (Verified Allergy, Unknown, 09/11/17) Family History Asthma Cancer Social History Smokes about a half pack per day. Rare alcohol use. She uses medical marijuana. Denies IV drug use. Physical Exam Vital Signs Vital Signs Date Time Temp Pulse Resp B/P (MAP) Pulse Ox O2 Delivery O2 Flow Rate FiO2 09/11/17 15:55 61 23 98/60 (73) 99 Room Air 09/11/17 14:55 64 24 97 Room Air 09/11/17 13:55 63 18 (79) 97 09/11/17 12:55 75 22 110/64 (79) 99 09/11/17 11:24 100 09/11/17 10:10 98.1 80 16 107/65 (79) 98 Physical Exam GENERAL: Thin female in no acute distress. HEENT: Normocephalic, atraumatic. Pupils equal, round and reactive. Extraocular movements intact. No scleral icterus. No injection or drainage. Oropharynx is clear. Mucous membranes are moist. CARDIOVASCULAR: Regular rate and rhythm without murmurs, gallops, or rubs. RESPIRATORY: Clear to auscultation. No wheezes, rales, or rhonchi. Breathing is non-labored. GASTROINTESTINAL: Abdomen soft, non-tender, nondistended. EXTREMITIES: No lower extremity edema. No calf tenderness. PSYCH: Alert and oriented x 3. Laboratory Laboratory Tests Test 09/11/17 11:45 09/11/17 12:55 Blood Urea Nitrogen 9 Creatinine 0.85 Random Glucose 100 Calcium Level 9.7 Sodium Level 143 Potassium Level 3.5 Chloride Level 110 Carbon Dioxide Level 19.1 Anion Gap 14 Estimat Glomerular Filtration Rate 77 Ethyl Alcohol Level LESS THAN 3 Urine Opiates Screen NEG Urine Barbiturates Screen NEG Urine Amphetamines Screen NEG Urine Benzodiazepines Screen NEG Urine Cocaine Screen NEG Urine Cannabinoids Screen POS Result Diagram: 09/11/17 1145 Imaging Last Impressions Head CT 09/11/17 1135 Signed Impressions: Service Date/Time: Monday, September 11, 2017 13:29 - CONCLUSION: No evidence of acute intracranial pathology. No masses are identified. MD Kale Sosa VTE Risk Assessment Caprini VTE Risk Assessment: No/Low Risk (score <= 1) Caprini Risk Assessment Model Point Value = 1 Point Value = 2 Point Value = 3 Point Value = 5 Age 41-60 Minor surgery BMI > 25 kg/m2 Swollen legs Varicose veins or History of unexplained or recurrent spontaneous Oral contraceptives or hormone replacement Sepsis (< 1 month) Serious lung disease, including pneumonia (< 1 month) Abnormal pulmonary function Acute myocardial infarction Congestive heart failure (< 1 month) History of inflammatory bowel disease Medical patient at bed rest Age 61-74 Arthroscopic surgery Major open surgery (> 45 min) Laparoscopic surgery (> 45 min) Malignancy Confined to bed (> 72 hours) Immobilizing plaster cast Central venous access Age >= 75 History of VTE Family history of VTE Factor V Leiden Prothrombin [id number] Lupus anticoagulant Anticardiolipin antibodies Elevated serum homocysteine Heparin-induced thrombocytopenia Other congenital or acquired thrombophilia Stroke (< 1 month) Elective arthroplasty Hip, pelvis, or leg fracture Acute spinal cord injury (< 1 month) Prophylaxis Regimen Total Risk Factor Score Risk Level Prophylaxis Regimen 0-1 Low Early ambulation 2 Moderate Order ONE of the following: *Sequential Compression Device (SCD) *Heparin 5000 units SQ BID 3-4 Higher Order ONE of the following medications: *Heparin 5000 units SQ TID *Enoxaparin/Lovenox 40 mg SQ daily (WT < 150 kg, CrCl > 30 mL/min) *Enoxaparin/Lovenox 30 mg SQ daily (WT < 150 kg, CrCl > 10-29 mL/min) *Enoxaparin/Lovenox 30 mg SQ BID (WT < 150 kg, CrCl > 30 mL/min) AND/OR *Sequential Compression Device (SCD) 5 or more Highest Order ONE of the following medications: *Heparin 5000 units SQ TID (Preferred with Epidurals) *Enoxaparin/Lovenox 40 mg SQ daily (WT < 150 kg, CrCl > 30 mL/min) *Enoxaparin/Lovenox 30 mg SQ daily (WT < 150 kg, CrCl > 10-29 mL/min) *Enoxaparin/Lovenox 30 mg SQ BID (WT < 150 kg, CrCl > 30 mL/min) AND *Sequential Compression Device (SCD) Assessment and Plan Assessment and Plan 1. Seizure: Possibly secondary to benzodiazepine withdrawal. Admit to ICU for close monitoring. Seizure precautions. Ativan as needed for seizures. Consult neurology. EEG pending. Head CT is negative. 2. Bipolar disorder, anxiety: Consult psychiatry for assistance with medications. 3. Possible benzodiazepine withdrawal: CITX protocol. Patient received Librium in the ER. 4. DVT prophylaxis: RENETTA Garcia. Taras Cain MD Sep 11, 2017 16:11
--- NOTE | 2017-09-11 17:13 | MB ---
cc: Valdez Duffy MD DATE: 09/11/2017 HISTORY OF PRESENT ILLNESS: A 31-year-old right-handed woman with a history of PTSD, bipolar, anxiety, depression. She was on Klonopin. In June, she had stopped it for a week, had ran out of medications, and then had a grand mal seizure. Evidently was seen up in [place]. Now, she has been off Klonopin for about a month and a half when she had some tremors, which she had before the prior seizure, and then evidently had a grand mal seizure. She initially came in because she was feeling very nervous and tremulous like she might have a seizure and then evidently had one in the ER. There was some question of withdrawal several days ago of her estrogen therapy for previous total hysterectomy. She had increased anxiety. She tried to get into [facility] and was unable to. She had some twitching, decreased appetite, nausea. She was going to be discharged with followup with [facility] and then she had a seizure when she was going out to the waiting room, full blown tonic-clonic seizure, came back in , was given 1 mg of Ativan. She has been on Depakote in the past, but it made her sugar go up. She has been on Tegretol, but now on Trileptal 300 in the morning and 150 at night. She woke up after the Ativan and was given some Librium p.o. REVIEW OF SYSTEMS: Not very often does she have a headache. She has a mild one now. She denies any hypertension, diabetes, hypercholesterolemia, NV, CABG, cardiac arrhythmia, renal, hepatic, pulmonary disease, thyroid disease, lupus, ulcer, cancer or stroke. SOCIAL HISTORY: Nonsmoker or drinker. No drugs. Lives with her . FAMILY HISTORY: Positive for cancer in her parents. Negative for seizure or stroke. ALLERGIES: SHE IS ALLERGIC TO TYLENOL, CITALOPRAM, HYDROCODONE, METOCLOPRAMIDE. MEDICATIONS: She is on Premarin, hydroxyzine, Vistaril, olanzapine, oxcarbazepine 300 at night, 150 in the morning, Klonopin, although she has not taken that in over a month and a half, Rozerem 8 at bedtime, gabapentin 800 mg t.i.d. PHYSICAL EXAMINATION: VITAL SIGNS: 61, 23, 98/60, afebrile. NECK: There are no carotid bruits. HEART: Regular rhythm. I did not detect a murmur. NEUROLOGIC: Pupils are equal. Visual conrad full. Extraocular movements intact without nystagmus. Face is symmetric with normal sensation. Tongue was midline. There was no drift. She had normal strength in the upper and lower extremities bilaterally. DTRs were 2+, symmetric throughout. Toes downgoing bilaterally. There was no ankle clonus. Tone was normal throughout. There was no asterixis. Pinprick was intact throughout, except for the palm of the right hand. Otherwise, appeared to be entirely normal, upper and lower extremities bilaterally including the back of her hand bilaterally. Then, later on, she said there was no difference in the pinprick between the ulnar and median nerve distribution in the hand. She is not intact on [id number]. She has a bit of an intention tremor. She is awake and alert, oriented. Speech is slow. She is not aphasic. LABORATORY DATA: CBC is normal. Urine drug screen positive for marijuana only. UA is negative. Basic metabolic profile essentially normal. LFTs were normal about 2 weeks ago. Albumin normal. TSH normal. Calcium is normal. CAT scan of the brain read as negative. EKG shows sinus rhythm. IMPRESSION: Another seizure. The first one I could attribute to the Klonopin, although the second one, she has been off Klonopin for 6 weeks, although you can have some seizures remotely from Klonopin stoppage, probably less likely. We will check an electroencephalogram and an MRI of the brain. We can increase her Trileptal to 600 b.i.d., which would be more along a seizure dose, and then up to 1200 b.i.d. in 3 days. We will check some additional blood work. I will be following her with you the hospital. I asked the to look at the [employer] $2.50 list for medications he could afford and medical team here could consider having psychiatry see her for her psychiatric problems, see what would be the best cheapest medication for her. MD MARYAM Dunn/JORDY , 04:30 PM , 05:12 PM
[2017-09-11] MEDS: SODIUM CHLOR 0.9% 1000 ML INJ 1,000 ML IV SCH (17:26)
[2017-09-11] MEDS: OXcarbazepine 600 MG TAB PO SCH ×2 (17:45→21:43)
[2017-09-11] MEDS ORDERED: GADODIAMIDE PF 287 MG/ML 5 ML VIAL (for RAD MRI) IVCONTRAST ONE (18:15)
--- NOTE | 2017-09-11 18:49 | RADRPT ---
EXAM DATE/TIME: 09/11/2017 17:49 [facility] COMPARISON: No previous studies available for comparison. INDICATIONS : CVA. New onset of seizures today, weakness on left side. CONTRAST: 10 cc Omniscan (gadodiamide) IV MEDICAL HISTORY : None. SURGICAL HISTORY : Appendectomy. Cholecystectomy. Hysterectomy. CSP fusion, Bilateral feet sx. ENCOUNTER: Initial ACUITY: 1 day PAIN SCORE: 2/10 LOCATION: Left cranial TECHNIQUE: Multiplanar, multisequence MRI of the brain was performed both prior to and following the administrat ion of paramagnetic contrast. FINDINGS: CEREBRUM: The ventricles are normal for age. No evidence of midline shift, mass lesion, hemorrhage or acute in farction. No extraaxial fluid collections are seen. The pituitary gland and suprasellar cistern are normal in configuration. WHITE MATTER: No significant signal abnormalities are seen in the white matter. POSTERIOR FOSSA: The cerebellum and brainstem are intact. The 4th ventricle is midline. The cerebellopontine angle is unremarkable. The cerebellar tonsils are normal in position. DIFFUSION IMAGING: No focal areas of restricted diffusion are seen. No evidence of acute infarction. EXTRACRANIAL: The visualized portions of the orbits and paranasal sinuses are unremarkable. POST-CONTRAST: No abnormal areas of parenchymal or dural enhancement. No evidence of blood-brain barrier breakdown. CONCLUSION: Normal examination for a patient of this age. Kailash Fletcher MD on September 11, 2017 at 18:44 Board Certified Radiologist. This report was verified electronically.
[2017-09-11] MEDS ORDERED: CHLORHEXIDINE GLUCONATE 2 % 1 PACK (2 CLOTHS)(extra cloths) TOPICAL PRN (20:45)
[2017-09-11] MEDS: SODIUM CHLORIDE 0.9% FLUSH 10 ML FLUSH IV FLUSH SCH (21:00)
[2017-09-12] VITALS (7 sets, daily range): BP systolic 85–110; BP diastolic 56–61; PULSE 52–86; RESP 14–35; TEMP 97.8–98.6; O2SAT 98–99
[2017-09-12] MEDS: SODIUM CHLOR 0.9% 1000 ML INJ 1,000 ML IV SCH (03:49)
[2017-09-12] MEDS ORDERED: CHLORHEXIDINE GLUCONATE 2 % 1 PACK (2 CLOTHS)(taper/protocol) TOPICAL SCH (04:00)
[2017-09-12 05:09] LABS: AUTOMATED NEUTROPHIL # 2.8 TH/MM3 (1.8-7.7); BASOPHIL % 0.5 % (0.0-2.0); EOSINOPHIL # 0.2 TH/MM3 (0-0.4); HEMATOCRIT 33.4 % (35.0-46.0); HEMOGLOBIN 11.6 GM/DL (11.6-15.3); LYMPH % 34.4 % (9.0-44.0); LYMPHOCYTE # 1.8 TH/MM3 (1.0-4.8); MEAN CELL VOLUME 92.8 FL (80.0-100.0); MEAN CORPUSCULAR HEMOGLOBIN 32.3 PG (27.0-34.0); MEAN CORPUSCULAR HGB CONC 34.8 % (32.0-36.0); MEAN PLATELET VOLUME 7.8 FL (7.0-11.0); MONO % 7.9 % (0.0-8.0); MONOCYTE # 0.4 TH/MM3 (0-0.9); NEUT % 53.2 % (16.0-70.0); PLATELET COUNT 213 TH/MM3 (150-450); WHITE BLOOD COUNT 5.3 TH/MM3 (4.0-11.0)
[2017-09-12 05:39] LABS: ALBUMIN 3.4 GM/DL (3.4-5.0); ALKALINE PHOSPHATASE 65 U/L (45-117); ALT (GPT) 15 U/L (10-53); AST (GOT) 11 U/L (15-37); BICARBONATE 24.7 MEQ/L (21.0-32.0); BLOOD UREA NITROGEN 6 MG/DL (7-18); CALCIUM 8.4 MG/DL (8.5-10.1); CHLORIDE 113 MEQ/L (98-107); CREATININE 0.52 MG/DL (0.50-1.00); GLOMERULAR FILTRATION RATE 136 ML/MIN (>89); GLUCOSE,RANDOM 86 MG/DL (74-106); MAGNESIUM 1.8 MG/DL (1.5-2.5); PHOSPHORUS 3.2 MG/DL (2.5-4.9); SODIUM (NA) 145 MEQ/L (136-145); TOTAL BILIRUBIN ADULT 0.3 MG/DL (0.2-1.0); TOTAL PROTEIN 6.6 GM/DL (6.4-8.2)
[2017-09-12] MEDS ORDERED: POTASSIUM CHLORIDE 20 MEQ CONTROLLED RELEASE TAB PO ONE (06:15)
--- NOTE | 2017-09-12 07:42 | MG ---
cc: Valdez Duffy MD TEST NUMBER: [id number]. DESCRIPTION: Possible withdrawal seizure from benzos, anxiety, Ativan, Dilantin, with a 9-10 Hz, 60 microvolt posterior and diffuse rhythm is seen. No epileptiform or seizure activity is noted. There were no hemisphere asymmetries. Photic stimulation is performed without significant posterior driving. IMPRESSION: Normal awake EEG. No evidence for focal or diffuse abnormality. MD MARYAM Dunn/WESLEY , 06:09 PM , 06:22 PM
--- NOTE | 2017-09-12 07:59 | HHI.PR ---
Subjective Remarks no sz overnoc Objective Vital Signs Date Time Temp Pulse Resp B/P (MAP) Pulse Ox O2 Delivery O2 Flow Rate FiO2 09/12/17 06:00 60 09/12/17 04:00 98.0 61 14 110/57 (74) 09/12/17 04:00 61 09/12/17 02:00 57 09/12/17 00:00 97.8 52 35 85/59 (68) 09/12/17 00:00 52 09/11/17 22:00 75 09/11/17 20:30 97.5 85 27 105/71 (82) 99 09/11/17 20:30 85 09/11/17 19:56 09/11/17 18:47 88 16 105/79 (88) 100 09/11/17 15:55 61 23 98/60 (73) 99 Room Air 09/11/17 14:55 64 24 97 Room Air 09/11/17 13:55 63 18 (79) 97 09/11/17 12:55 75 22 110/64 (79) 99 09/11/17 11:24 100 09/11/17 10:10 98.1 80 16 107/65 (79) 98 I/O 09/11/17 09/11/17 09/11/17 09/12/17 09/12/17 09/12/17 07:00 15:00 23:00 07:00 15:00 23:00 Intake Total 1000 ml 1390 ml Output Total 100 ml 575 ml Balance 1000 ml -100 ml 815 ml Intake Oral 240 ml IV Total 1000 ml 1150 ml Output Urine Total 100 ml 575 ml # Voids 1 # Bowel Movements 0 Result Diagram: 09/12/17 0450 09/12/17 0448 Objective Remarks awakens alert nad Assessment and Plan Assessment and Plan imp eeg nl mri nl labs ok so far on trileptal 600 bid i would dose at that for 4 days then inc to 1200 bid and have her fu with neurologyin dletona that takes medicaid i dw her ok to Valdez Pena MD Sep 12, 2017 07:58
--- NOTE | 2017-09-12 08:25 | HHI.PR ---
Subjective Remarks Follow-up seizure. Patient has no complaints this morning. No further seizure activity reported. She wants to go home. Objective Vitals Vital Signs Date Time Temp Pulse Resp B/P (MAP) Pulse Ox O2 Delivery O2 Flow Rate FiO2 09/12/17 06:00 60 09/12/17 04:00 98.0 61 14 110/57 (74) 09/12/17 04:00 61 09/12/17 02:00 57 09/12/17 00:00 97.8 52 35 85/59 (68) 09/12/17 00:00 52 09/11/17 22:00 75 09/11/17 20:30 97.5 85 27 105/71 (82) 99 09/11/17 20:30 85 09/11/17 19:56 09/11/17 18:47 88 16 105/79 (88) 100 09/11/17 15:55 61 23 98/60 (73) 99 Room Air 09/11/17 14:55 64 24 97 Room Air 09/11/17 13:55 63 18 (79) 97 09/11/17 12:55 75 22 110/64 (79) 99 09/11/17 11:24 100 09/11/17 10:10 98.1 80 16 107/65 (79) 98 I/O 09/11/17 09/11/17 09/11/17 09/12/17 09/12/17 09/12/17 07:00 15:00 23:00 07:00 15:00 23:00 Intake Total 1000 ml 1390 ml Output Total 100 ml 575 ml Balance 1000 ml -100 ml 815 ml Intake Oral 240 ml IV Total 1000 ml 1150 ml Output Urine Total 100 ml 575 ml # Voids 1 # Bowel Movements 0 Result Diagram: 09/12/17 0450 09/12/17 0448 Imaging Last Impressions Brain MRI 09/11/17 1628 Signed Impressions: Service Date/Time: Monday, September 11, 2017 17:49 - CONCLUSION: Normal examination for a patient of this age. Kailash Fletcher MD Head CT 09/11/17 1135 Signed Impressions: Service Date/Time: Monday, September 11, 2017 13:29 - CONCLUSION: No evidence of acute intracranial pathology. No masses are identified. Valdez Ku MD Objective Remarks General: No acute distress. Heart: Regular rate and rhythm. No murmur. Lungs: Clear to auscultation bilaterally. No wheezes, rales, or rhonchi. Breathing is nonlabored. Abdomen: Soft, nontender, nondistended. Extremities: No lower extremity edema. Psych: Alert and oriented. Procedures None Urinary Catheter: No Vascular Central Line Catheter: No A/P Problem List: (1) Bipolar disorder ICD Code: F31.9 - Bipolar disorder, unspecified (2) Anxiety ICD Code: F41.9 - Anxiety disorder, unspecified Status: Acute (3) Seizure concurrent with and due to anxiolytic withdrawal ICD Code: F13.239 - Sedative, hypnotic or anxiolytic dependence with withdrawal , unspecified; F13.288 - Sedative, hypnotic or anxiolytic dependence with other sedative, hypnotic or anxiolytic-induced disorder; R56.9 - Unspecified convulsions Status: Acute Assessment and Plan 1. Seizure: Possibly secondary to benzodiazepine withdrawal. Seizure precautions. Ativan as needed for seizures. Head CT is negative. Appreciate neurology recommendations. Trileptal dose adjusted. 2. Bipolar disorder, anxiety: Consult psychiatry for assistance with medications. 3. Possible benzodiazepine withdrawal: On CIWA protocol. Patient received Librium in the ER. Did not require Ativan overnight. 4. DVT prophylaxis: RENETTA Garcia. Discharge Planning Transfer to medical/surgical floor. Cleared for discharge by neurology. Awaiting psychiatry evaluation. If cleared by psychiatry, possible discharge home later today. Taras Cain MD Sep 12, 2017 08:25
[2017-09-12] MEDS: OXcarbazepine 600 MG TAB PO SCH (08:34)
[2017-09-12] MEDS: SODIUM CHLORIDE 0.9% FLUSH 10 ML FLUSH IV FLUSH SCH (08:35)
[2017-09-12] MEDS ORDERED: ESTROGENS CONJUGATED 0.9 MG PO SCH (12:30)
[2017-09-12] MEDS ORDERED: PROGESTERONE MICRONIZED 100 MG PO SCH (12:30)
--- NOTE | 2017-09-12 12:56 | PD.PSY.CON ---
Provisional Diagnosis Admission Date Sep 11, 2017 at 14:27 [place] I. Bipolar disorder, anxiety, sedative-hypnotics use disorder [place] II. Deferred [place] III. Asthma, benzodiazepine withdrawal History of Present Illness Service Psychiatry Consult Requested By Critical care Reason for Consult Medication adjustment Primary Care Physician No Primary Care Physician HPI The patient is a 32 year-old [place] woman, domiciled with her in [facility], mother of 4 kids, unemployed, on SSI process, with psychiatric history of bipolar disorder and anxiety, benzodiazepine dependence, psychiatric hospitalizations, no previous suicide attempts, she is in olanzapine 50 mg, gabapentin 300 mg daily, Trileptal 600 mg twice daily, Klonopin 1 mg 3 times daily, medical history of asthma, who presented with complaints of spasms/ twitching. She has been on multiple medications for bipolar disorder and anxiety. She ran out of clonazepam about 2 weeks ago. She had been evaluated by the ER physician call center assistant and was being discharged home when she had a tonic -clonic seizure. She apparently hit her head and lost consciousness. She states that she has never had a seizure before, although she and her describe a similar episode when she had run out of clonazepam previously and she ended up in a hospital in [place]. Was consulted to psychiatry for medication recommendations. On psychiatric evaluation today the patient is calm , cooperative. She is accompanied by her Josue Garcia, who is use for collateral information. The patient reports being in a good mood now, denies depressive symptoms, she denies anhedonia, she denies hopelessness, she denies helplessness, she denies suicidal and homicidal ideation, she denies visual and auditory hallucinations. The patient reports that she has been experiencing withdrawal symptoms since she has stopped her clonazepam. She says that she has been taking clonazepam for a long time prescribed by a psychiatrist in [place]. However, she prefers to stop taking this medical "to avoid dependency and withdrawal". At this moment the patient denies withdrawal symptoms, denies anxiety, denies tray and psychosis. Patient reports that she is highly motivated to explore other options for anxiety and no benzodiazepines. Patient reports daily use of marijuana, but denies other illegal drugs and alcohol just occasionally. Her clarifies that he does not have any safety concern, he says that the patient has been taking the Klonopin as prescribed, agrees that the patient should not go back to take this medication. Review of Systems Constitutional: DENIES: Diaphoretic episodes, Fatigue, Fever, Weight gain, Weight loss, Chills, Dizziness, Change in appetite, Night Sweats Endocrine: DENIES: Abnorml menstrual pattern, Heat/cold intolerance, Polydipsia , Polyuria, Polyphagia Eyes: DENIES: Blurred vision, Diplopia, Eye inflammation, Eye pain, Vision loss , Photosensitivity, Double Vision Ears, nose, mouth, throat: DENIES: Tinnitus, Hearing loss, Vertigo, Nasal discharge, Oral lesions, Throat pain, Hoarseness, Ear Pain, Running Nose, Epistaxis, Sinus Pain, Toothache, Odynophagia Respiratory: DENIES: Apneas, Cough, Snoring, Wheezing, Hemoptysis, Sputum production, Shortness of breath Cardiovascular: DENIES: Chest pain, Palpitations, Syncope, Dyspnea on Exertion , PND, Lower Extremity Edema, Orthopnea, Claudication Gastrointestinal: DENIES: Abdominal pain, Black stools, Bloody stools, Constipation, Diarrhea, Nausea, Vomiting, Difficulty Swallowing, Anorexia Genitourinary: DENIES: Abnormal vaginal bleeding, Dysmenorrhea, Dyspareunia, Sexual dysfunction, Urinary frequency, Urinary incontinence, Urgency, Hematuria , Dysuria, Nocturia, Vaginal discharge Musculoskeletal: DENIES: Joint pain, Muscle aches, Stiffness, Joint Swelling, Back pain, Neck pain Integumentary: DENIES: Abnormal pigmentation, Pruritus, Rash, Nail changes, Breast masses, Breast skin changes, Nipple discharge Hematologic/lymphatic: DENIES: Bruising, Lymphadenopathy Immunologic/allergic: DENIES: Eczema, Urticaria Neurologic: DENIES: Abnormal gait, Headache, Localized weakness, Paresthesias, Seizures, Speech Problems, Tremor, Poor Balance Psychiatric: DENIES: Anxiety, Confusion, Mood changes, Depression, Hallucinations, Agitation, Suicidal Ideation, Homicidal Ideation, Delusions Past Family Social History Coded Allergies: citalopram (Verified Allergy, Unknown, 09/11/17) hydrocodone (Verified Allergy, Unknown, Rash, 09/11/17) metoclopramide (Verified Allergy, Unknown, 09/11/17) Active Scripts Hydroxyzine HCl (Hydroxyzine HCl) 25 Mg Tab, 25 MG PO QID Y for ANXIETY, #40 TAB 0 Refills Prov:Nathalie Rodriguez MD 09/11/17 Estrogens, Conjugated (Premarin) 0.45 Mg Tab, 0.45 MG PO DAILY for Estrogen Supplements, #30 TAB 0 Refills Prov:Keron Nation MD 09/07/17 Estrogens, Conjugated (Premarin) 0.9 Mg Tab, 0.9 MG PO DAILY for Estrogen Supplements, #30 TAB 0 Refills Prov:Keron Nation MD 09/07/17 Progesterone Micronized (Progesterone Micronized) 100 Mg Cap, 100 MG PO DAILY, # 30 CAP 0 Refills Prov:KarelKeron ramsey MD 09/07/17 Hydroxyzine Pamoate (Vistaril) 50 Mg Cap, 50 MG PO TID, #15 CAP 0 Refills Prov:Taras Mulligan MD 08/22/17 Olanzapine (Olanzapine) 15 Mg Tab, 15 MG PO DAILY, #30 TAB 0 Refills Prov:Jade Lobato INGOT STRIPPER 08/06/17 Oxcarbazepine (Oxcarbazepine) 150 Mg Tab, 150 MG PO BID for Seizure Control, # 30 TAB 0 Refills Prov:Jade Lobato INGOT STRIPPER 08/06/17 Oxcarbazepine (Oxcarbazepine) 300 Mg Tab, 300 MG PO HS for Seizure Control, #30 TAB 0 Refills Prov:Jade Lobato INGOT STRIPPER 08/06/17 Permethrin Topical 5% (Permethrin Topical 5%) 5% Cream, 1 APPLIC TOPICAL ONCE for Scabies, #1 TUBE 1 Refill Prov:Humberto Palacios MD 08/01/17 Reported Medications Clonazepam (Clonazepam) 1 Mg Tab, 1 MG PO BID, #60 TAB 0 Refills 07/24/17 Ramelteon (Rozerem) 8 Mg Tab, 8 MG PO HS, TAB 07/24/17 Gabapentin (Gabapentin) 800 Mg Tab, 800 MG PO TID, #90 TAB 0 Refills 07/24/17 Current Medications Medications (Trade) Dose Ordered Sig/Susanna Route Start Time Stop Time Status Last Admin (Librium) 50 mg ONCE PRN PO 09/11/17 13:30 (Romazicon Inj) 0.2 mg Q1M PRN IV PUSH 09/11/17 13:30 (Ativan) 1 mg Q4H PRN PO 09/11/17 13:30 (Ativan Inj) 1 mg Q4H PRN IV PUSH 09/11/17 13:30 (Ativan) 2 mg Q2H PRN PO 09/11/17 13:30 (Ativan Inj) 2 mg Q2H PRN IV PUSH 09/11/17 13:30 (Ativan Inj) 2 mg Q1H PRN IV PUSH 09/11/17 13:30 (Ativan Inj) 2 mg Q15M PRN IV PUSH 09/11/17 13:30 (NS Flush) 2 ml UNSCH PRN IV FLUSH 09/11/17 14:30 09/11/17 17:45 (NS Flush) 2 ml BID IV FLUSH 09/11/17 21:00 09/12/17 08:35 (Ativan Inj) 1 mg Q10M PRN IV PUSH 09/11/17 14:30 09/11/17 17:46 (Tylenol) 650 mg Q4H PRN PO 09/11/17 14:30 Sodium Chloride 1,000 ml @ 75 mls/hr [id number] IV 09/11/17 17:00 09/12/17 03:49 (Trileptal) 600 mg BID PO 09/11/17 17:00 09/12/17 08:34 Miscellaneous Information Patient in critical care unit? Ass... [id number] 09/11/17 20:45 09/11/17 20:45 (Chlorhexidine 2% Cloth) 3 pack DAILY@04 TOPICAL 09/12/17 04:00 09/16/17 04:01 09/12/17 03:59 (Chlorhexidine 2% Cloth) 3 pack UNSCH PRN TOPICAL 09/11/17 20:45 09/16/17 20:35 (ZyPREXA) 15 mg HS PO 09/12/17 21:00 (Premarin) 0.9 mg DAILY PO 09/12/17 12:30 UNV Non-Formulary Medication 100 mg DAILY PO 09/12/17 12:30 UNV Family Psych History Mother has depression, father is bipolar Social History Patient was born and raised in [place], she lives in [facility] with her , she has 4 kids, unemployed, supported by SSI Patient's Strengths (min. 2) Family support Physical Exam No tremors, no withdrawal, no psychomotor retardation or agitation Vital Signs Vital Signs Date Time Temp Pulse Resp B/P (MAP) Pulse Ox O2 Delivery O2 Flow Rate FiO2 09/12/17 10:00 82 09/12/17 08:00 98.6 31 91/61 (71) 98 09/11/17 15:55 Room Air I/O 09/12/17 09/12/17 09/13/17 08:00 16:00 00:00 Intake Total 1390 ml Output Total 575 ml 875 ml Balance 815 ml -875 ml Lab Results Test 09/11/17 12:55 09/11/17 20:20 09/12/17 04:48 09/12/17 04:50 Urine Opiates Screen NEG Urine Barbiturates Screen NEG Urine Amphetamines Screen NEG Urine Benzodiazepines Screen NEG Urine Cocaine Screen NEG Urine Cannabinoids Screen POS Nasal Screen MRSA (PCR) MRSA NOT DETECTED Erythrocyte Sedimentation Rate 6 mm/hr Blood Urea Nitrogen 6 MG/DL Creatinine 0.52 MG/DL Random Glucose 86 MG/DL Total Protein 6.6 GM/DL Albumin 3.4 GM/DL Calcium Level 8.4 MG/DL Phosphorus Level 3.2 MG/DL Magnesium Level 1.8 MG/DL Alkaline Phosphatase 65 U/L Aspartate Amino Transf (AST/SGOT) 11 U/L Alanine Aminotransferase (ALT/SGPT) 15 U/L Total Bilirubin 0.3 MG/DL Sodium Level 145 MEQ/L Potassium Level 3.4 MEQ/L Chloride Level 113 MEQ/L Carbon Dioxide Level 24.7 MEQ/L Anion Gap 7 MEQ/L Estimat Glomerular Filtration Rate 136 ML/MIN Rapid Plasma Reagin NON-REACTIVE White Blood Count 5.3 TH/MM3 Red Blood Count 3.60 MIL/MM3 Hemoglobin 11.6 GM/DL Hematocrit 33.4 % Mean Corpuscular Volume 92.8 FL Mean Corpuscular Hemoglobin 32.3 PG Mean Corpuscular Hemoglobin Concent 34.8 % Red Cell Distribution Width 13.0 % Platelet Count 213 TH/MM3 Mean Platelet Volume 7.8 FL Neutrophils (%) (Auto) 53.2 % Lymphocytes (%) (Auto) 34.4 % Monocytes (%) (Auto) 7.9 % Eosinophils (%) (Auto) 4.0 % Basophils (%) (Auto) 0.5 % Neutrophils # (Auto) 2.8 TH/MM3 Lymphocytes # (Auto) 1.8 TH/MM3 Monocytes # (Auto) 0.4 TH/MM3 Eosinophils # (Auto) 0.2 TH/MM3 Basophils # (Auto) 0.0 TH/MM3 CBC Comment DIFF FINAL Differential Comment Mental Status Examination Appearance: Appropriate Consciousness: Alert Orientation: x4 Motor Activity: Normal gait Speech: Unremarkable Language: Adequate Fund of Knowledge: Adequate Attention and Concentration: Adequate Memory: Unremarkable Mood: Appropriate Affect: Appropriate Thought Process & Associations: Intact Thought Content: Appropriate Hallucination Type: None Delusion Type: None Suicidal Ideation: No Suicidal Plan: No Suicidal Intention: No Homicidal Ideation: No Homicidal Plan: No Homicidal Intention: No Insight: Adequate Judgment: Adequate Assessment & Plan Problem List: (1) Anxiety disorder, unspecified ICD Codes: F41.9 - Anxiety disorder, unspecified Assessment & Plan: Psychiatric evaluation today the patient does not present any significant neuropsychiatric symptoms that requires an immediate psychiatric information. The patient denies depressive symptoms, she denies current anxiety, she denies psychosis and tray. The patient denies suicidal and homicidal ideation, she denies visual and auditory hallucinations. Patient has been withdrawing of benzodiazepine after stopping this medication suddenly about a week ago. Continue CIWA. Continue olanzapine 15 mg, gabapentin 300 mg 3 times daily, Trileptal 600 mg daily. Benzodiazepines can be substituted by BuSpar 10 mg 3 times daily or hydroxyzine 25 mg daily for her anxiety. Extensive psychoeducation, supportive motivation provided. The patient does not meet criteria for involuntary psychiatric commitment. Consult appreciated. Assessment & Plan Estimated LOS: Chaparro Longo MD Sep 12, 2017 12:55
[2017-09-12] MEDS ORDERED: OXCA600T PO (13:15)
[2017-09-12] MEDS ORDERED: hydrOXYzine HCL 25 MG TAB PO SCH (13:15)
[2017-09-12] MEDS ORDERED: HYDR-3133 PO (13:15)
--- NOTE | 2017-09-12 13:15 | HHI.DCPOC ---
Discharge Care Plan Diagnosis: (1) Anxiety disorder, unspecified (2) Bipolar disorder (3) Seizure concurrent with and due to anxiolytic withdrawal Goals to Promote Your Health * To prevent worsening of your condition and complications * To maintain your health at the optimal level Directions to Meet Your Goals Take your medications as prescribed Follow your dietary instruction Follow activity as directed Keep your appointments as scheduled Take your immunizations and boosters as scheduled If your symptoms worsen call your PCP, if no PCP go to Urgent Care Center or Emergency Room Smoking is Dangerous to Your Health. Avoid second hand smoke Call the 24-hour hour crisis hotline for domestic abuse at Taras Cain MD Sep 12, 2017 13:15
[2017-09-12 15:33] LABS: FREE T4 1.06 NG/DL (0.76-1.46)
--- NOTE | 2017-09-12 16:13 | EKG ---
Date Performed: 09/11/2017 Time Performed: 12:18:32 PTAGE: 32 years EKG: Sinus rhythm WITH OCCASIONAL ECTOPIC PREMATURE COMPLEXES BORDERLINE ECG NO PREVIOUS TRACING DOCTOR: Freddie Vaughn Interpretating Date/Time 09/12/2017 16:09:19
[2017-09-13 13:53] LABS: ANA SCREEN NEG (NEG)
[2017-09-14 22:22] LABS: ALB/GLOB RATIO (SPE) 1.96 (1.39-2.23)
== END 2017-09-12 14:34 | disposition home or self-care (01) | DRG 897 ==
LOC: NEPD 09:52 → NEDA 14:27 → HIMN 20:05 → N05A 09-12 11:02
PROVIDERS: ADMIT Family Medicine; ATTEND Family Medicine
DX: F13.239 Sedative, hypnotic or anxiolytic dependence with withdrawal, unspecified (principal); G40.409 Other generalized epilepsy and epileptic syndromes, not intractable, without status epilepticus; F31.9 Bipolar disorder, unspecified; F41.9 Anxiety disorder, unspecified; J45.909 Unspecified asthma, uncomplicated; F17.210 Nicotine dependence, cigarettes, uncomplicated; F12.90 Cannabis use, unspecified, uncomplicated; F43.10 Post-traumatic stress disorder, unspecified; Z90.710 Acquired absence of both cervix and uterus; Z88.6 Allergy status to analgesic agent; Z79.890 Hormone replacement therapy; Z79.899 Other long term (current) drug therapy
CPT/HCPCS: 70450; 70553; 80048; 80053; 80307; 82550; 82607; 83735; 84100; 84165; 84207; 84425; 84439; 84443; 84702; 84703; 85025; 85652; 86038; 86592; 87641; 93005; 95819; 96361; 96374; A9579; J2060; J7030; Q0177

== ENCOUNTER 2017-09-17 11:37 | Emergency (ER) | payer MEDICAID ==
[~2017-09-17] VITALS: Ht 172.7 cm; Wt 53.5 kg
[~2017-09-17 11:37] MED LIST changes: -CLON1TAB PO; -GABA800T PO; +HYDR-3133 PO; -OXCA150T PO; -OXCA300T PO; +OXCA600T PO; -ROZE8TAB19 PO; -VIST50CA PO
[2017-09-17 12:02] VITALS: BP 116/71; PULSE 98; RESP 18; TEMP 98.5; O2SAT 98
--- NOTE | 2017-09-17 13:34 | PD ---
HPI Chief Complaint: Anxiety Time Seen by Provider: 13:14 Travel History International Travel<30 days: No Contact w/Intl Traveler<30days: No Traveled to known affect area: No History of Present Illness HPI The patient was seen and examined in the presence of the nurse. This patient complains of having a seizure. She says she is having a seizure right now and she is talking to me and shaking her arms and legs. She has long-standing problems with bipolar and anxiety and PTSD. She reports compliance with medications. Symptom severity is moderate. Duration 2-3 weeks. No alleviating factors. Symptoms exacerbated by her psychiatric problems PFSH Past Medical History Bipolar Disorder: Yes Anxiety: Yes Depression: Yes Diminished Hearing: No Respiratory: Yes (ASTHMA) Immunizations Current: Yes Seizures: Yes (BENZOS WITHDRAWAL ) Tetanus Vaccination: < 5 Years ?: Not : 3 Para: 3 Ovarian Cysts: Yes Past Surgical History Appendectomy: Yes Cholecystectomy: Yes Hysterectomy: Yes Social History Alcohol Use: No Tobacco Use: Yes Substance Use: No Allergies-Medications (Allergen,Severity, Reaction): Coded Allergies: citalopram (Verified Allergy, Unknown, 09/11/17) hydrocodone (Verified Allergy, Unknown, Rash, 09/11/17) metoclopramide (Verified Allergy, Unknown, 09/11/17) Reported Meds & Prescriptions Reported Meds & Active Scripts Active Oxcarbazepine 600 Mg Tab 600 Mg PO BID Hydroxyzine HCl 25 Mg Tab 25 Mg PO DAILY PRN Premarin (Estrogens, Conjugated) 0.45 Mg Tab 0.45 Mg PO DAILY Premarin (Estrogens Conjugated) 0.9 Mg Tab 0.9 Mg PO DAILY Progesterone Micronized 100 Mg Cap 100 Mg PO DAILY Olanzapine 15 Mg Tab 15 Mg PO DAILY Permethrin Topical 5% (Permethrin) 5% Cream 1 Applic TOPICAL ONCE Review of Systems General / Constitutional: No: Fever Eyes: No: Visual changes HENT: No: Headaches Cardiovascular: No: Chest Pain or Discomfort Respiratory: No: Shortness of Breath Gastrointestinal: No: Abdominal Pain Genitourinary: No: Dysuria Musculoskeletal: No: Pain Skin: No Rash Neurologic: Positive: Seizures, No: Weakness Psychiatric: Positive: Anxiety, No: Depression Endocrine: No: Polydipsia Hematologic/Lymphatic: No: Easy Bruising Physical Exam Narrative GENERAL: Thin well-developed patient who is shaking her arms and legs SKIN: Focused skin assessment reveals no rash and nodules. Skin is Warm and dry. HEAD: Atraumatic. Normocephalic. EYES: Pupils equal and round. No scleral icterus. No injection or drainage. ENT: No nasal bleeding or discharge. Mucous membranes pink and moist. NECK: Trachea midline. No JVD. CARDIOVASCULAR: Regular rate and rhythm. No murmur appreciated. RESPIRATORY: No accessory muscle use. Clear to auscultation. Breath sounds equal bilaterally. GASTROINTESTINAL: Abdomen soft, non-tender, nondistended. Hepatic and splenic margins not palpable. MUSCULOSKELETAL: No obvious deformities. No clubbing. No cyanosis. No edema. NEUROLOGICAL: Awake and alert. No obvious cranial nerve deficits. Motor grossly within normal limits. Normal speech. When I distract her, her tremor stops completely. And I bring it up again and she merely start shaking her arms and legs. PSYCHIATRIC: Anxious mood and affect; insight and judgment poor . Data Data Last Documented VS Vital Signs Date Time Temp Pulse Resp B/P (MAP) Pulse Ox O2 Delivery O2 Flow Rate FiO2 09/17/17 12:02 98.5 98 18 116/71 (86) 98 Orders Orders Hydroxyzine Pamoate (Vistaril) (09/17/17 13:30) [facility] Medical Decision Making Medical Screen Exam Complete: Yes Emergency Medical Condition: Yes Medical Record Reviewed: Yes Differential Diagnosis Seizure, pseudoseizure, anxiety attack Narrative Course I have reviewed the patient's electronic medical record. Patient was kept overnight a few days ago for the same thing and saw neurology Had EEG and brain MRI, which was normal This patient is not having true seizure. It is readily controllable. I would call this a pseudoseizure. I gave her dose of 50 mg Vistaril and will observe her for a while I do not feel repeat studies are indicated based on her recent extensive negative workup. Patient is now more calm and relaxed. She wants to go home. I think she is stable for outpatient follow-up Diagnosis Primary Impression: Pseudoseizure Additional Impression: Anxiety disorder, unspecified Qualified Codes: F41.9 - Anxiety disorder, unspecified Additional Instructions: The patient was advised to follow up with their physician and return if they worsen. Med/Other Pt SpecificInfo: Other Disposition: DISCHARGE HOME Condition: Stable Taras Mulligan MD Sep 17, 2017 13:34
== END 2017-09-17 14:38 | disposition home or self-care (01) ==
LOC: NEPD 11:37
DX: F44.5 Conversion disorder with seizures or convulsions (principal); F41.9 Anxiety disorder, unspecified; F31.9 Bipolar disorder, unspecified
CPT/HCPCS: 99283

== ENCOUNTER 2017-10-24 08:07 | Emergency (ER) | payer MEDICAID ==
[~2017-10-24] VITALS: Ht 172.7 cm; Wt 54.0 kg
[2017-10-24 08:09] VITALS: BP 104/62; PULSE 62; RESP 18; TEMP 97.9; O2SAT 99
[2017-10-24] MEDS ORDERED: SODIUM CHLOR 0.9% 1000 ML INJ 1,000 ML IV ONE (08:22)
[2017-10-24] MEDS ORDERED: SODIUM CHLORIDE 0.9% FLUSH 10 ML FLUSH IVF PRN (08:30)
[2017-10-24] MEDS ORDERED: MORPHINE SULFATE 4 MG/ML INJ IV PUSH ONE (08:30)
[2017-10-24] MEDS ORDERED: KETOROLAC TROMETHAMINE 30 MG/ML (IVP) VIAL IVP ONE (08:30)
[2017-10-24] MEDS ORDERED: PROCHLORPERAZINE INJ 10 MG/2 ML VIAL IVP ONE (08:30)
[2017-10-24] MEDS ORDERED: diphenhydrAMINE HCL 50 MG/ML VIAL IVP ONE (08:30)
--- NOTE | 2017-10-24 08:40 | PD ---
HPI Chief Complaint: Headache Time Seen by Provider: 08:12 Travel History International Travel<30 days: No Contact w/Intl Traveler<30days: No Traveled to known affect area: No History of Present Illness HPI The patient is a 32-year-old female who presents to the emergency department for a headache. The patient states that she developed a migraine last night that is located to the right occipital and parietal area, typical for her migraines. The patient states she developed migraines at the age of 15 and they progressed at the age of 17. The patient was previously on Imitrex, however, no longer has a primary physician to write her Imitrex. She does complain of photophobia, phonophobia, nausea, and dry heaves without any abdominal pain. She denies any acute focal deficits of the upper or lower extremities. She has had imaging in the past including MRI and CT of the brain which were negative. Patient symptoms are moderate. PFSH Past Medical History Bipolar Disorder: Yes Anxiety: Yes Depression: Yes Diminished Hearing: No Respiratory: Yes Immunizations Current: Yes Migraines: Yes Seizures: Yes (BENZOS WITHDRAWAL ) Influenza Vaccination: Yes ?: Not : 3 Para: 3 Ovarian Cysts: Yes Past Surgical History Appendectomy: Yes Cholecystectomy: Yes Hysterectomy: Yes Social History Alcohol Use: No Tobacco Use: Yes (06/13 ppd) Substance Use: Yes (marijuana) Allergies-Medications (Allergen,Severity, Reaction): Coded Allergies: metoclopramide (Verified Allergy, Mild, Hives, 10/24/17) citalopram (Verified Allergy, Unknown, 09/11/17) hydrocodone (Verified Allergy, Unknown, Rash, 09/11/17) Reported Meds & Prescriptions Reported Meds & Active Scripts Active Oxcarbazepine 600 Mg Tab 600 Mg PO BID Premarin (Estrogens, Conjugated) 0.45 Mg Tab 0.45 Mg PO DAILY Premarin (Estrogens Conjugated) 0.9 Mg Tab 0.9 Mg PO DAILY Progesterone Micronized 100 Mg Cap 100 Mg PO DAILY Review of Systems Except as stated in HPI: all other systems reviewed are Neg General / Constitutional: No: Fever Eyes: Positive: Photophobia, No: Blurred Vision HENT: Positive: Headaches, No: Neck Pain Cardiovascular: No: Chest Pain or Discomfort Respiratory: No: Shortness of Breath Gastrointestinal: Positive: Nausea, Vomiting, No: Abdominal Pain Neurologic: Positive: Headache, No: Weakness, Focal Abnormalities, Change in Mentation, Paresthesia, Sensory Disturbance Physical Exam Narrative GENERAL: Awake, alert, pleasant 32-year-old female who appears her stated age is in no acute respiratory distress. SKIN: Focused skin assessment warm/dry. HEAD: Atraumatic. Normocephalic. EYES: Pupils equal and round. Pupils are 3 mm bilateral and reactive. ENT: No nasal bleeding or discharge. Mucous membranes pink and moist. Tongue ring that says "Fuck You". NECK: Trachea midline. No JVD. No meningeal signs. CARDIOVASCULAR: Regular rate and rhythm. No murmur appreciated. RESPIRATORY: No accessory muscle use. Clear to auscultation. Breath sounds equal bilaterally. GASTROINTESTINAL: Abdomen soft, non-tender, nondistended. MUSCULOSKELETAL: No obvious deformities. No clubbing. No cyanosis. No edema. NEUROLOGICAL: Awake and alert. No obvious cranial nerve deficits. Motor grossly within normal limits. Normal speech. Nonfocal. Oriented x4. PSYCHIATRIC: Appropriate mood and affect; insight and judgment normal. Data Data Last Documented VS Vital Signs Date Time Temp Pulse Resp B/P (MAP) Pulse Ox O2 Delivery O2 Flow Rate FiO2 10/24/17 08:09 97.9 62 18 104/62 (76) 99 Orders Orders Ecg Monitoring (10/24/17 08:22) Iv Access Insert/Monitor (10/24/17 08:22) Oximetry (10/24/17 08:22) Sodium Chloride 0.9% Flush (Ns Flush) (10/24/17 08:30) Ketorolac Inj (Toradol Inj) (10/24/17 08:30) Prochlorperazine Inj (Compazine Inj) (10/24/17 08:30) Diphenhydramine Inj (Benadryl Inj) (10/24/17 08:30) Sodium Chlor 0.9% 1000 Ml Inj (Ns 1000 M (10/24/17 08:22) Morphine Inj (Morphine Inj) (10/24/17 08:30) MDM Medical Decision Making Medical Screen Exam Complete: Yes Emergency Medical Condition: Yes Medical Record Reviewed: Yes Differential Diagnosis Differential diagnosis includes migraine, tension headache, cluster headache, glaucoma, neck strain. Narrative Course IV was established and the patient was administered Toradol, morphine, Benadryl , Compazine, and IV fluids. I reviewed the patient's EMR, she had a negative brain MRI performed September 11, [address] the brain on September 11, 2017. The patient was reevaluated at 9:30 AM, her headache had significantly improved, she feels well enough for discharge. I will refill her Imitrex. She is advised to follow-up with a primary physician. Diagnosis Primary Impression: Cephalgia Qualified Codes: R51 - Headache Patient Instructions: Narcotic given in the ED, General Instructions Additional Instructions: Imitrex as directed. Follow-up with a primary physician. Return if symptoms worsen or progress. Med/Other Pt SpecificInfo: Prescription(s) given Scripts Sumatriptan (Imitrex) 50 Mg Tab 50 MG PO ONCE Y for MIGRAINE HEADACHE, #7 TAB 0 Refills If a satisfactory response has not been obtained at 2 hours, a second dose may be administered Prov: Dez Lynn MD 10/24/17 Disposition: 01 DISCHARGE HOME Condition: Stable Dez Lynn MD October 24, 2017 08:40
[2017-10-24] MEDS ORDERED: IMIT50TA PO (09:40)
== END 2017-10-24 09:57 | disposition home or self-care (01) ==
LOC: NEPC 08:07
DX: R51 Headache (principal); F12.90 Cannabis use, unspecified, uncomplicated; F17.200 Nicotine dependence, unspecified, uncomplicated
CPT/HCPCS: 96361; 96374; 96375; 99284; J0780; J1200; J1885; J2270; J7030

== ENCOUNTER 2017-11-04 23:00 | Emergency (ER) | payer MEDICAID ==
[~2017-11-04] VITALS: Ht 172.7 cm; Wt 54.1 kg
[~2017-11-04 23:00] MED LIST changes: -HYDR-3133 PO; +IMIT50TA PO; -OLAN15TA PO; -PERM5CRE TOPICAL
[2017-11-04 23:04] VITALS: BP 133/85; PULSE 67; RESP 20; TEMP 97.9
--- NOTE | 2017-11-05 00:03 | RADRPT ---
EXAM DATE: 11/04/2017 11:58 PM EDT AGE/SEX: 32 years / Female INDICATIONS: Trauma; seizure. CLINICAL DATA: This is the patient's initial encounter. Patient reports that signs and symptoms have been present for 1 day and indicates a pain score of 7/10. MEDICAL/SURGICAL HISTORY: None. None. RADIATION DOSE: 56.35 CTDI (mGy) COMPARISON: [facility] [place] BRAIN W/O CONTRAST, 09/11/2017. . TECHNIQUE: CT of the head without contrast. Using automated exposure control and adjustment of the mA and/or kV according to patient size, radiation dose was kept as low as reasonably achievable to ob tain optimal diagnostic quality images. FINDINGS: Cerebrum: The ventricles are normal for age. No evidence of midline shift, mass lesion, hemorrhage or acute infarction. No extraaxial fluid collections are seen. Posterior Fossa: The cerebellum and brainstem are intact. The 4th ventricle is midline. The cerebe llopontine angle is unremarkable. Extracranial: The visualized portion of the orbits is intact. Skull: The calvaria is intact. No evidence of skull fracture. CONCLUSION: 1. Negative noncontrast head CT. Electronically signed by: David Henderson MD 11/05/2017 12:02 AM EDT
--- NOTE | 2017-11-05 00:09 | RADRPT ---
EXAM DATE: 11/05/2017 12:01 AM EDT AGE/SEX: 32 years / Female INDICATIONS: Syncopal episode with a forward fall. CLINICAL DATA: This is the patient's initial encounter. Patient reports that signs and symptoms have been present for 1 day and indicates a pain score of 0/10. MEDICAL/SURGICAL HISTORY: None. Appendectomy. Cholecystectomy. Hysterectomy. COMPARISON: No prior [place] exams available for comparison. FINDINGS: A single AP view of the chest demonstrates the lungs to be symmetrically aerated without evidence of mass, infiltrate or effusion. The cardiomediastinal contours are unremarkable. Osseous structures a re intact. CONCLUSION: No evidence of acute cardiopulmonary disease. Electronically signed by: David Henderson MD 11/05/2017 12:08 AM EDT
--- NOTE | 2017-11-05 00:10 | RADRPT ---
EXAM DATE: 11/04/2017 11:58 PM EDT AGE/SEX: 32 years / Female INDICATIONS: Trauma; seizure. CLINICAL DATA: This is the patient's initial encounter. Patient reports that signs and symptoms have been present for 1 day and indicates a pain score of 7/10. MEDICAL/SURGICAL HISTORY: None. None. RADIATION DOSE: 21.96 CTDI (mGy) COMPARISON: No prior [facility] exams available for comparison. TECHNIQUE: Contiguous images in the axial and coronal planes were obtained using helical multirow de tector technique. Using automated exposure control and adjustment of the mA and/or kV according to p atient size, radiation dose was kept as low as reasonably achievable to obtain optimal diagnostic jolanta lity images. FINDINGS: Orbits: The orbital and infraorbital osseous structures are intact. The retroconal structures have a normal configuration. No radiopaque foreign bodies are seen. Nasal Bone: The nasal bone and maxillary spine are intact. Zygomatic Arches: Symmetric without evidence of fracture. Sinuses: The maxillary, ethmoid, and frontal sinuses are intact. No air-fluid levels seen. Nasal Cavity: The nasal septum is intact and midline. The lacrimal ducts are intact. Soft Tissues: No radiopaque foreign bodies seen. No soft-tissue swelling is seen. Intracranial: No intracranial air seen. Cribriform Plate: Grossly intact. CONCLUSION: Intact facial bones. Electronically signed by: David Henderson MD 11/05/2017 12:08 AM EDT
--- NOTE | 2017-11-05 00:10 | RADRPT ---
EXAM DATE: 11/05/2017 12:00 AM EDT AGE/SEX: 32 years / Female INDICATIONS: Syncopal episode with frontal fall. CLINICAL DATA: This is the patient's initial encounter. Patient reports that signs and symptoms have been present for 1 day and indicates a pain score of 0/10. MEDICAL/SURGICAL HISTORY: None. Appendectomy. Cholecystectomy. Hysterectomy. COMPARISON: No prior [facility] exams available for comparison. FINDINGS: Examination of the pelvis demonstrates no evidence of fracture or dislocation. Bony mineralization i s normal. There is no widening of the sacroiliac joints. No foreign body is identified. CONCLUSION: Intact pelvis. Electronically signed by: David Henderson MD 11/05/2017 12:08 AM EDT
--- NOTE | 2017-11-05 00:13 | RADRPT ---
EXAM DATE: 11/04/2017 11:59 PM EDT AGE/SEX: 32 years / Female INDICATIONS: Trauma; seizure. CLINICAL DATA: This is the patient's initial encounter. Patient reports that signs and symptoms have been present for 1 day and indicates a pain score of 7/10. MEDICAL/SURGICAL HISTORY: None. None. RADIATION DOSE: 11.8 CTDI (mGy) COMPARISON: No prior [facility] exams available for comparison. TECHNIQUE: Contiguous axial images were obtained using helical multirow detector technique. The vol umetric data was post-processed with multiplanar reconstruction in oblique axial, sagittal, and coron al planes. Using automated exposure control and adjustment of the mA and/or kV according to patient s ize, radiation dose was kept as low as reasonably achievable to obtain optimal diagnostic quality derik ges. FINDINGS: Vertebrae: Normal vertebral body height. Alignment: Normal. No subluxation. C2-3: The bony spinal canal is normal in size. No evidence of disc bulge or herniation. The neural foramina are bilaterally patent. C3-4: The bony spinal canal is normal in size. No evidence of disc bulge or herniation. The neural foramina are bilaterally patent. C4-5: The bony spinal canal is normal in size. No evidence of disc bulge or herniation. The neural foramina are bilaterally patent. C5-6: Previous discectomy and fusion procedure with interbody and anterior instrumentation. Limited bone bridging. Alignment is normal. No evidence of hardware failure or loosening. C6-7: The bony spinal canal is normal in size. No evidence of disc bulge or herniation. The neural foramina are bilaterally patent. C7-T1: The bony spinal canal is normal in size. No evidence of disc bulge or herniation. The neura l foramina are bilaterally patent. CONCLUSION: 1. Intact cervical spine. 2. Attempted previous fusion procedure at C5/C6. I don't see an acute complication but minimal if an y bone bridging. Alignment is normal. Electronically signed by: David Henderson MD 11/05/2017 12:12 AM EDT
[2017-11-05] MEDS ORDERED: MORPHINE SULFATE 4 MG/ML INJ IV PUSH ONE (01:00)
[2017-11-05 01:10] VITALS: BP 130/69; PULSE 47; RESP 18; O2SAT 99
[2017-11-05 01:34] LABS: BACTERIA, URINE MANY /hpf; BILIRUBIN, URINE NEG (NEG); BLOOD, URINE NEG (NEG); CALCIUM OXALATE CRYSTALS,URINE MOD /hpf; GLUCOSE,URINE NEG (NEG); KETONE, URINE 10 mg/dL (NEG); MUCUS URINE MANY /lpf (OCC); NITRITE,URINE NEG (NEG); SQUAMOUS EPITHELIAL CELL URINE 7 /hpf (0-5); URINE COLOR YELLOW (YELLW/STRAW); URINE LEUKOCYTE ESTERASE TRACE (NEG)
[2017-11-05 02:04] VITALS: BP 158/80; PULSE 57; RESP 22; O2SAT 100
[2017-11-05] MEDS ORDERED: ONDANSETRON ODT 4 MG TAB PO ONE (02:15)
--- NOTE | 2017-11-05 03:25 | PD ---
HPI Chief Complaint: Seizure Time Seen by Provider: 23:31 Travel History International Travel<30 days: No Contact w/Intl Traveler<30days: No Traveled to known affect area: No History of Present Illness HPI 32-year-old female presents to the emergency department status post seizure. She had facial trauma and was found on the ground by her , She has a known seizure history and she takes Trileptal. The events are unclear, has been states that she was fine and then he heard her thrashing about. She has an obvious dental fracture and some minor facial lacerations. Patient states that she is compliant with her medications is very upset at the time of H&P. PFSH Past Medical History Bipolar Disorder: Yes Anxiety: Yes Depression: Yes Diminished Hearing: No Respiratory: Yes Immunizations Current: Yes Migraines: Yes Seizures: Yes (BENZOS WITHDRAWAL hx) Tetanus Vaccination: Unknown Influenza Vaccination: Yes ?: Not : 3 Para: 3 Ovarian Cysts: Yes Past Surgical History Appendectomy: Yes Cholecystectomy: Yes Hysterectomy: Yes (full) Social History Alcohol Use: No Tobacco Use: Yes (/ ppd) Substance Use: Yes (marijuana) Allergies-Medications (Allergen,Severity, Reaction): Coded Allergies: metoclopramide (Verified Allergy, Mild, Hives, 10/24/17) citalopram (Verified Allergy, Unknown, 09/11/17) hydrocodone (Verified Allergy, Unknown, Rash, 09/11/17) Reported Meds & Prescriptions Reported Meds & Active Scripts Active Imitrex (Sumatriptan Succinate) 50 Mg Tab 50 Mg PO ONCE PRN If a satisfactory response has not been obtained at 2 hours, a second dose may be administered Oxcarbazepine 600 Mg Tab 600 Mg PO BID Premarin (Estrogens, Conjugated) 0.45 Mg Tab 0.45 Mg PO DAILY Premarin (Estrogens Conjugated) 0.9 Mg Tab 0.9 Mg PO DAILY Progesterone Micronized 100 Mg Cap 100 Mg PO DAILY Review of Systems Except as stated in HPI: all other systems reviewed are Neg HENT: Positive: Dental Difficulties, No: Headaches Gastrointestinal: No: Nausea, Vomiting Genitourinary: No: Urgency, Frequency, Dysuria Neurologic: Positive: Seizures Psychiatric: Positive: Anxiety, Depression, No: Suicidal Ideations Physical Exam Narrative GENERAL: 32-year-old female mild distress status post seizure, she is not postictal at this time. SKIN: Focused skin assessment warm/dry. HEAD: Minor facial trauma, including a fractured tooth #9 -there is a horizontal break midshaft of the tooth. The fragment is not available. EYES: Pupils equal and round. No scleral icterus. No injection or drainage. ENT: No nasal bleeding or discharge. Mucous membranes pink and moist. NECK: Trachea midline. No JVD. CARDIOVASCULAR: Regular rate and rhythm. No murmur appreciated. RESPIRATORY: No accessory muscle use. Clear to auscultation. Breath sounds equal bilaterally. GASTROINTESTINAL: Abdomen soft, non-tender, nondistended. Hepatic and splenic margins not palpable. MUSCULOSKELETAL: No obvious deformities. No clubbing. No cyanosis. No edema. NEUROLOGICAL: Awake and alert. No obvious cranial nerve deficits. Motor grossly within normal limits. Normal speech. PSYCHIATRIC: Appropriate mood and affect; insight and judgment normal. Data Data Last Documented VS Vital Signs Date Time Temp Pulse Resp B/P (MAP) Pulse Ox O2 Delivery O2 Flow Rate FiO2 11/05/17 03:41 11/05/17 02:04 57 22 100 Room Air 11/04/17 23:[address] Brain W/O Iv Contrast(Rout) (11/04/17 ) Ct Cerv Spine W/O Contrast (11/04/17 ) Ct Facial Bones W/O Iv Cont (11/04/17 ) Chest, Single Ap (11/04/17 ) Pelvis, Ap Only (Routine) (11/04/17 ) Urinalysis - C+S If Indicated (11/04/17 23:32) Morphine Inj (Morphine Inj) (11/05/17 01:00) Urine Culture (11/05/17 00:06) Ondansetron Odt (Zofran Odt) (11/05/17 02:15) Ceftriaxone Inj (Rocephin Inj) (11/05/17 03:30) Lidocaine 1% Inj (Xylocaine 1% Inj) (11/05/17 03:30) Azithromycin (Zithromax) (11/05/17 03:30) Ed Discharge Order (11/05/17 03:36) Lidocaine Pf 1% Inj (Xylocaine-Mpf 1% In (11/05/17 03:45) Labs Laboratory Tests Test 11/05/17 00:06 Urine Color YELLOW Urine Turbidity HAZY Urine pH 6.0 Urine Specific [place] 1.033 Urine Protein 30 mg/dL Urine Glucose (UA) NEG mg/dL Urine Ketones 10 mg/dL Urine Occult Blood NEG Urine Nitrite NEG Urine Bilirubin NEG Urine Urobilinogen 4.0 MG/DL Urine Leukocyte Esterase TRACE Urine RBC 2 /hpf Urine WBC 7 /hpf Urine Squamous Epithelial Cells 7 /hpf Urine Calcium Oxalate Crystals MOD /hpf Urine Bacteria MANY /hpf Urine Mucus MANY /lpf Microscopic Urinalysis Comment CULTURE INDICATED MDM Medical Decision Making Medical Screen Exam Complete: Yes Emergency Medical Condition: Yes Differential Diagnosis seizure (recurrent) Narrative Course Patient seen and evaluated in the ED. She does have a fractured front tooth but no other injury. She has an an aseptic pyuria - given Rocephin and Azithromycin. She states that she is complaint with her Trileptal and has medication at home Will follow up with dentistry and neurology. Diagnosis Primary Impression: Seizure Additional Impression: Possible exposure to STD Patient Instructions: General Instructions, Recurrent Seizures in Adults (DC) Disposition: 01 DISCHARGE HOME Condition: Pacheco Davila DO November 05, 2017 03:25
[2017-11-05] MEDS ORDERED: cefTRIAXone 250 MG VIAL IM ONE (03:30)
[2017-11-05] MEDS ORDERED: AZITHROMYCIN 250 MG TAB PO ONE (03:30)
[2017-11-05] MEDS ORDERED: LIDOCAINE HCL 1% 20 ML VIAL INFIL ONE (03:30)
[2017-11-05] MEDS ORDERED: LIDOCAINE HCL 1% PF 30 ML VIAL INFIL ONE (03:45)
== END 2017-11-05 04:03 | disposition home or self-care (01) ==
LOC: NEPC 23:00
DX: R56.9 Unspecified convulsions (principal); N39.0 Urinary tract infection, site not specified; F12.90 Cannabis use, unspecified, uncomplicated; F17.200 Nicotine dependence, unspecified, uncomplicated; S02.5XXA Fracture of tooth (traumatic), initial encounter for closed fracture; X58.XXXA Exposure to other specified factors, initial encounter
CPT/HCPCS: 70450; 70486; 71045; 72125; 72170; 81001; 87086; 96372; 96374; 99285; J0696; J2270